=== PATIENT | male | born 1940 | race Caucasian/White ===

== ENCOUNTER 2018-01-20 07:36 | Emergency (ER) | payer MEDICARE, OTHER ==
[~2018-01-20] VITALS: Ht 162.6 cm; Wt 63.5 kg
[~2018-01-20 07:36] MED LIST: AUGM875T PO; KPHOS250 PO; ZOCO40TA PO
[2018-01-20 07:42] VITALS: BP 101/57; PULSE 106; RESP 18; TEMP 97.3; O2SAT 99
[2018-01-20] MEDS ORDERED: SIMV40TA PO (07:54)
[2018-01-20 08:21] VITALS: BP 119/70; PULSE 79; RESP 17; O2SAT 98
--- NOTE | 2018-01-20 08:27 | PD ---
HPI Chief Complaint: Cold / Flu Symptoms Time Seen by Provider: 08:11 Travel History International Travel<30 days: No Contact w/Intl Traveler<30days: No Traveled to known affect area: No History of Present Illness HPI This patient complains of diarrhea. He is having frequently for the last 1 week. Is not having abdominal pain or presyncopal symptoms. He has baseline low blood pressure. He is not having nausea or vomiting or any fever. He feels dehydrated. He has some generalized weakness. He did take antibiotics 2 weeks ago for a tooth infection. He has no history of C. difficile colitis. Symptom severity is moderate. No alleviating factors. No exacerbating factors. PFSH Past Medical History Cancer: No High Cholesterol: Yes Endocrine: No Genitourinary: No Immune Disorder: No Musculoskeletal: No Neurologic: No Psychiatric: No Reproductive: No Respiratory: No Past Surgical History Tonsillectomy: Yes Social History Alcohol Use: No Tobacco Use: No Substance Use: No Allergies-Medications (Allergen,Severity, Reaction): Coded Allergies: No Known Allergies (Unverified Adverse Reaction, Unknown, 01/20/18) Reported Meds & Prescriptions Reported Meds & Active Scripts Active Vancomycin (Vancomycin HCl) 125 Mg Cap 125 Mg PO QID 10 Days Reported Simvastatin 40 Mg Tab 40 Mg PO HS Review of Systems General / Constitutional: No: Fever Eyes: No: Visual changes HENT: No: Headaches Cardiovascular: No: Chest Pain or Discomfort Respiratory: No: Shortness of Breath Gastrointestinal: Positive: Diarrhea, No: Abdominal Pain Genitourinary: No: Dysuria Musculoskeletal: Positive: Weakness, No: Pain Skin: No Rash Neurologic: Positive: Weakness Psychiatric: No: Depression Endocrine: No: Polydipsia Hematologic/Lymphatic: No: Easy Bruising Physical Exam Narrative GENERAL: Well-nourished, well-developed patient in no apparent distress. SKIN: Focused skin assessment reveals no rash and nodules. Skin is Warm and dry. HEAD: Atraumatic. Normocephalic. EYES: Pupils equal and round. No scleral icterus. No injection or drainage. ENT: No nasal bleeding or discharge. Mucous membranes pink and moist. NECK: Trachea midline. No JVD. CARDIOVASCULAR: Regular rate and rhythm. No murmur appreciated. RESPIRATORY: No accessory muscle use. Clear to auscultation. Breath sounds equal bilaterally. GASTROINTESTINAL: Abdomen soft, non-tender, nondistended. Hepatic and splenic margins not palpable. MUSCULOSKELETAL: No obvious deformities. No clubbing. No cyanosis. No edema. NEUROLOGICAL: Awake and alert. No obvious cranial nerve deficits. Motor grossly within normal limits. Normal speech. PSYCHIATRIC: Appropriate mood and affect; insight and judgment normal. Rectal: Stool is dark but Hemoccult negative. Has a small external hemorrhoid that is not bleeding. No fissure. Data Data Last Documented VS Vital Signs Date Time Temp Pulse Resp B/P (MAP) Pulse Ox O2 Delivery O2 Flow Rate FiO2 01/20/18 08:21 79 17 119/70 (86) 98 Room Air 01/20/18 07:42 97.3 Orders Orders Iv Access Insert/Monitor (01/20/18 08:20) Complete Blood Count With Diff (01/20/18 08:20) Comprehensive Metabolic Panel (01/20/18 08:20) Sodium Chlor 0.9% 1000 Ml Inj (Ns 1000 M (01/20/18 08:30) C Diff Toxin Pcr (01/20/18 08:20) Potassium Bicarb Eff (Effer-K Eff) (01/20/18 12:30) Labs Laboratory Tests Test 01/20/18 08:10 01/20/18 08:15 White Blood Count 16.2 TH/MM3 Red Blood Count 5.31 MIL/MM3 Hemoglobin 16.4 GM/DL Hematocrit 46.6 % Mean Corpuscular Volume 87.8 FL Mean Corpuscular Hemoglobin 30.9 PG Mean Corpuscular Hemoglobin Concent 35.2 % Red Cell Distribution Width 12.9 % Platelet Count 294 TH/MM3 Mean Platelet Volume 9.2 FL Neutrophils (%) (Auto) 80.3 % Lymphocytes (%) (Auto) 11.9 % Monocytes (%) (Auto) 7.2 % Eosinophils (%) (Auto) 0.4 % Basophils (%) (Auto) 0.2 % Neutrophils # (Auto) 13.0 TH/MM3 Lymphocytes # (Auto) 1.9 TH/MM3 Monocytes # (Auto) 1.2 TH/MM3 Eosinophils # (Auto) 0.1 TH/MM3 Basophils # (Auto) 0.0 TH/MM3 CBC Comment AUTO DIFF Differential Total Cells Counted 100 Neutrophils % (Manual) 33 % Band Neutrophils % 40 % Lymphocytes % 12 % Monocytes % 9 % Neutrophils # (Manual) 12.8 TH/MM3 Metamyelocytes 6 % Differential Comment FINAL DIFF MANUAL Toxic Granulation 1+ Toxic Vacuolation PRESENT Ovalocytes 1+ Acanthocytes OCC Blood Urea Nitrogen 18 MG/DL Creatinine 0.95 MG/DL Random Glucose 100 MG/DL Total Protein 7.3 GM/DL Albumin 2.9 GM/DL Calcium Level 9.1 MG/DL Alkaline Phosphatase 79 U/L Aspartate Amino Transf (AST/SGOT) 27 U/L Alanine Aminotransferase (ALT/SGPT) 31 U/L Total Bilirubin 0.6 MG/DL Sodium Level 136 MEQ/L Potassium Level 3.2 MEQ/L Chloride Level 99 MEQ/L Carbon Dioxide Level 22.8 MEQ/L Anion Gap 14 MEQ/L Estimat Glomerular Filtration Rate 76 ML/MIN Stool C. difficile Toxin (PCR) POSITIVE Stl C. difficile Toxin Epiderm 027 PRESUMPTIVE NEGATIVE MDM Medical Decision Making Medical Screen Exam Complete: Yes Emergency Medical Condition: Yes Medical Record Reviewed: Yes Differential Diagnosis Gastroenteritis, colitis, C. difficile Narrative Course I have reviewed the patient's electronic medical record. Patient was last year in 2015 with hypotension and bradycardia IV placed and labs sent I gave him 1 L normal saline IV bolus His abdomen is soft and benign and nontender Stool sent for C. difficile toxin CBC shows leukocytosis with bandemia Metabolic profile shows hypokalemia and I replaced this with a 50 mEq dose C. difficile toxin is positive Patient has C. difficile diarrhea and I will treat with 10 days of oral vancomycin as per up-to-date recommendations. I do not think he requires inpatient stay. He is minimally symptomatic and quite spry for his age. Diagnosis Primary Impression: C. difficile colitis Additional Impression: Hypokalemia, gastrointestinal losses Additional Instructions: The patient was advised to follow up with their physician and return if they worsen. Med/Other Pt SpecificInfo: Prescription(s) given Scripts Vancomycin (Vancomycin) 125 Mg Cap 125 MG PO QID for Infection for 10 Days, CAP 0 Refills Prov: Marcelino Maya MD 01/20/18 Disposition: 01 DISCHARGE HOME Condition: Stable Marcelino Maya MD January 20, 2018 08:27
[2018-01-20] MEDS ORDERED: SODIUM CHLOR 0.9% 1000 ML INJ 1,000 ML IV ONE (08:30)
[2018-01-20 08:34] LABS: BASOPHIL % 0.2 % (0.0-2.0); EOSINOPHIL # 0.1 TH/MM3 (0-0.4); EOSINOPHIL % 0.4 % (0.0-4.0); HEMATOCRIT 46.6 % (39.0-51.0); HEMOGLOBIN 16.4 GM/DL (13.0-17.0); LYMPH % 11.9 % (9.0-44.0); LYMPHOCYTE # 1.9 TH/MM3 (1.0-4.8); MEAN CELL VOLUME 87.8 FL (80.0-100.0); MEAN CORPUSCULAR HEMOGLOBIN 30.9 PG (27.0-34.0); MEAN CORPUSCULAR HGB CONC 35.2 % (32.0-36.0); MEAN PLATELET VOLUME 9.2 FL (7.0-11.0); MONO % 7.2 % (0.0-8.0); MONOCYTE # 1.2 TH/MM3 (0-0.9); NEUT % 80.3 % (16.0-70.0); PLATELET COUNT 294 TH/MM3 (150-450); RED BLOOD COUNT 5.31 MIL/MM3 (4.50-5.90); RED CELL DISTRIBUTION WIDTH 12.9 % (11.6-17.2); WHITE BLOOD COUNT 16.2 TH/MM3 (4.0-11.0)
[2018-01-20 08:53] LABS: ALBUMIN 2.9 GM/DL (3.4-5.0); ALT (GPT) 31 U/L (12-78); AST (GOT) 27 U/L (15-37); BICARBONATE 22.8 MEQ/L (21.0-32.0); BLOOD UREA NITROGEN 18 MG/DL (7-18); CALCIUM 9.1 MG/DL (8.5-10.1); CHLORIDE 99 MEQ/L (98-107); CREATININE 0.95 MG/DL (0.60-1.30); GLOMERULAR FILTRATION RATE 76 ML/MIN (>89); GLUCOSE,RANDOM 100 MG/DL (74-106); SODIUM (NA) 136 MEQ/L (136-145)
[2018-01-20 08:56] LABS: ALKALINE PHOSPHATASE 79 U/L (45-117); TOTAL BILIRUBIN ADULT 0.6 MG/DL (0.2-1.0); TOTAL PROTEIN 7.3 GM/DL (6.4-8.2)
[2018-01-20 09:34] LABS: BANDS 40 % (0-6); LYMPHOCYTES 12 % (9-44); METAMYELOCYTES 6 % (0-1); MONOCYTES 9 % (0-8); NEUTROPHIL # MANUAL DIFF 12.8 TH/MM3 (1.8-7.7); POLYS (SEG NEUTROPHILS) 33 % (16-70); TOXIC VACUOLATION PRESENT (NONE SEEN)
[2018-01-20 09:35] LABS: ACANTHOCYTES OCC (NORMAL); TOXIC GRANULATION 1+ (NORMAL)
[2018-01-20 09:36] LABS: OVALOCYTES 1+ (NORMAL)
[2018-01-20] MEDS ORDERED: POTASSIUM BICARBONATE 25 MEQ EFFERVESCENT TAB PO ONE (12:30)
[2018-01-20] MEDS ORDERED: VANC125C3 PO (13:38)
[2018-01-20 13:50] VITALS: BP 118/72
== END 2018-01-20 13:51 | disposition home or self-care (01) ==
LOC: NEPE 07:36
DX: A04.72 Enterocolitis due to Clostridium difficile, not specified as recurrent (principal); E87.6 Hypokalemia; E78.00 Pure hypercholesterolemia, unspecified
CPT/HCPCS: 80053; 85007; 85027; 87493; 96360; 99284; J7030

== ENCOUNTER 2018-01-21 22:10 | Emergency (ER) | payer OTHER ==
[~2018-01-21] VITALS: Ht 177.8 cm; Wt 67.0 kg
[~2018-01-21 22:10] MED LIST changes: +SIMV40TA PO; +VANC125C3 PO
[2018-01-21 22:56] VITALS: BP 100/53; PULSE 83; RESP 20; TEMP 98.6; O2SAT 98
[2018-01-22] MEDS ORDERED: SODIUM CHLOR 0.9% 1000 ML INJ 1,000 ML IV ONE (00:22)
[2018-01-22 00:24] VITALS: O2SAT 97
[2018-01-22] MEDS ORDERED: SODIUM CHLORIDE 0.9% FLUSH 10 ML FLUSH IVF PRN (00:30)
[2018-01-22 00:42] LABS: AUTOMATED NEUTROPHIL # 10.9 TH/MM3 (1.8-7.7); BASOPHIL # 0.1 TH/MM3 (0-0.2); BASOPHIL % 0.5 % (0.0-2.0); EOSINOPHIL # 0.1 TH/MM3 (0-0.4); EOSINOPHIL % 0.8 % (0.0-4.0); HEMATOCRIT 40.2 % (39.0-51.0); HEMOGLOBIN 14.1 GM/DL (13.0-17.0); LYMPH % 19.5 % (9.0-44.0); MEAN CELL VOLUME 87.8 FL (80.0-100.0); MEAN CORPUSCULAR HEMOGLOBIN 30.8 PG (27.0-34.0); MEAN CORPUSCULAR HGB CONC 35.1 % (32.0-36.0); MEAN PLATELET VOLUME 8.9 FL (7.0-11.0); MONO % 7.5 % (0.0-8.0); MONOCYTE # 1.1 TH/MM3 (0-0.9); NEUT % 71.7 % (16.0-70.0); PLATELET COUNT 304 TH/MM3 (150-450); RED BLOOD COUNT 4.58 MIL/MM3 (4.50-5.90); RED CELL DISTRIBUTION WIDTH 13.3 % (11.6-17.2); WHITE BLOOD COUNT 15.2 TH/MM3 (4.0-11.0)
[2018-01-22 01:12] LABS: BANDS 16 % (0-6); LYMPHOCYTES 22 % (9-44); METAMYELOCYTES 2 % (0-1); MONOCYTES 1 % (0-8); NEUTROPHIL # MANUAL DIFF 11.6 TH/MM3 (1.8-7.7); POLYS (SEG NEUTROPHILS) 58 % (16-70)
[2018-01-22 01:13] LABS: BICARBONATE 29.2 MEQ/L (21.0-32.0); CALCIUM 8.2 MG/DL (8.5-10.1); CREATININE 0.66 MG/DL (0.60-1.30)
[2018-01-22 01:14] LABS: TOXIC GRANULATION 1+ (NORMAL)
[2018-01-22 01:15] LABS: TOXIC VACUOLATION PRESENT (NONE SEEN)
[2018-01-22] MEDS ORDERED: POTASSIUM CHLORIDE 20 MEQ CONTROLLED RELEASE TAB PO ONE (01:30)
[2018-01-22] MEDS ORDERED: POTASSIUM CHLOR 10 MEQ PREMIX 100 ML IV ONE (01:30)
--- NOTE | 2018-01-22 01:35 | PD ---
HPI Chief Complaint: GI Complaint Time Seen by Provider: 00:22 Travel History International Travel<30 days: No Contact w/Intl Traveler<30days: No Traveled to known affect area: No History of Present Illness HPI 77-year-old male presents to the emergency department by private transport in the care of his granddaughter for evaluation of dehydration. Patient has had 1 week of diarrheal illness was seen in the emergency department 01/20/18 diagnosed with C. difficile diarrheal illness/colitis and started on oral vancomycin. Patient was identified yesterday to have elevated white cell count with left shift and hyperkalemia patient given a liter of normal saline bolus oral potassium replacement and started on oral vancomycin. Patient's had no fever no chills no nausea no vomiting has been able to take oral hydration and foods well however after oral hydration patient has been having ongoing frequent diarrhea. No bloody stool no explosive stool or flatus. Patient denies any abdominal pain. Granddaughter became concerned because patient continued to appear like he might be becoming dehydrated. Patient voices no concerns or complaints at this time. Source of onset of diarrheal illness felt to be related to recent antibiotic use from recent dental procedure. Patient reports frequency of diarrheal episodes decreasing and stool seems to be forming to more solid stool patient reports he thinks that he is improving. PFSH Past Medical History Narrative Medical Dental extraction dyslipidemia C. difficile colitis; nursing notes reviewed Cancer: No High Cholesterol: Yes Diminished Hearing: No Endocrine: No Genitourinary: No Immune Disorder: No Musculoskeletal: No Neurologic: No Psychiatric: No Reproductive: No Respiratory: No Immunizations Current: Yes Tetanus Vaccination: Unknown Influenza Vaccination: No Past Surgical History Surgical History: No Previous Surgery Tonsillectomy: Yes Social History Alcohol Use: No Tobacco Use: No Substance Use: No Allergies-Medications (Allergen,Severity, Reaction): Coded Allergies: No Known Allergies (Unverified Adverse Reaction, Unknown, 01/21/18) Reported Meds & Prescriptions Reported Meds & Active Scripts Active Vancomycin (Vancomycin HCl) 125 Mg Cap 125 Mg PO QID 10 Days Reported Simvastatin 40 Mg Tab 40 Mg PO HS Review of Systems Except as stated in HPI: all other systems reviewed are Neg General / Constitutional: No: Fever, Chills HENT: No: Congestion Cardiovascular: No: Chest Pain or Discomfort Respiratory: No: Shortness of Breath Gastrointestinal: Positive: Diarrhea, No: Nausea, Vomiting, Abdominal Pain Genitourinary: No: Dysuria, Flank Pain Musculoskeletal: No: Myalgias, Arthralgias Neurologic: No: Weakness, Dizziness, Syncope Psychiatric: No: Anxiety Hematologic/Lymphatic: No: Easy Bruising Physical Exam Narrative GENERAL: Well-developed well-nourished male no acute distress no respiratory distress SKIN: Warm and dry. HEAD: Normocephalic. EYES: No scleral icterus. No injection or drainage. NECK: Supple, trachea midline. No JVD or lymphadenopathy. CARDIOVASCULAR: Regular rate and rhythm without murmurs, gallops, or rubs. RESPIRATORY: Breath sounds equal bilaterally. No accessory muscle use. GASTROINTESTINAL: Abdomen soft, non-tender, nondistended. MUSCULOSKELETAL: No cyanosis, or edema. BACK: Nontender without obvious deformity. No CVA tenderness. Data Data Last Documented VS Vital Signs Date Time Temp Pulse Resp B/P (MAP) Pulse Ox O2 Delivery O2 Flow Rate FiO2 01/22/18 00:24 97 Room Air 01/21/18 22:56 98.6 83 20 100/53 (69) Orders Orders Complete Blood Count With Diff (01/22/18 00:22) Basic Metabolic Panel (Bmp) (01/22/18 00:22) Iv Access Insert/Monitor (01/22/18 00:22) Ecg Monitoring (01/22/18 00:22) Oximetry (01/22/18 00:22) Sodium Chlor 0.9% 1000 Ml Inj (Ns 1000 M (01/22/18 00:22) Sodium Chloride 0.9% Flush (Ns Flush) (01/22/18 00:30) Potassium Chloride (Kcl) (01/22/18 01:30) Potassium Chlor 10 Meq Premix (Kcl 10 Me (01/22/18 01:30) Vancomycin 25 Mg/Ml Liq (Vancomycin 25 M (01/22/18 03:04) Labs Laboratory Tests Test 01/22/18 00:30 White Blood Count 15.2 TH/MM3 Red Blood Count 4.58 MIL/MM3 Hemoglobin 14.1 GM/DL Hematocrit 40.2 % Mean Corpuscular Volume 87.8 FL Mean Corpuscular Hemoglobin 30.8 PG Mean Corpuscular Hemoglobin Concent 35.1 % Red Cell Distribution Width 13.3 % Platelet Count 304 TH/MM3 Mean Platelet Volume 8.9 FL Neutrophils (%) (Auto) 71.7 % Lymphocytes (%) (Auto) 19.5 % Monocytes (%) (Auto) 7.5 % Eosinophils (%) (Auto) 0.8 % Basophils (%) (Auto) 0.5 % Neutrophils # (Auto) 10.9 TH/MM3 Lymphocytes # (Auto) 3.0 TH/MM3 Monocytes # (Auto) 1.1 TH/MM3 Eosinophils # (Auto) 0.1 TH/MM3 Basophils # (Auto) 0.1 TH/MM3 CBC Comment AUTO DIFF Differential Total Cells Counted 100 Neutrophils % (Manual) 58 % Band Neutrophils % 16 % Lymphocytes % 22 % Monocytes % 1 % Eosinophils % 1 % Neutrophils # (Manual) 11.6 TH/MM3 Metamyelocytes 2 % Differential Comment FINAL DIFF MANUAL Toxic Granulation 1+ Toxic Vacuolation PRESENT Platelet Estimate NORMAL Platelet Morphology Comment NORMAL Blood Urea Nitrogen 6 MG/DL Creatinine 0.66 MG/DL Random Glucose 87 MG/DL Calcium Level 8.2 MG/DL Sodium Level 139 MEQ/L Potassium Level 2.9 MEQ/L Chloride Level 101 MEQ/L Carbon Dioxide Level 29.2 MEQ/L Anion Gap 9 MEQ/L Estimat Glomerular Filtration Rate 116 ML/MIN MDM Medical Decision Making Medical Screen Exam Complete: Yes Emergency Medical Condition: Yes Medical Record Reviewed: Yes Interpretation(s) CBC & BMP Diagram 01/22/18 00:30 Calcium Level 8.2 #L Vital Signs Date Time Temp Pulse Resp B/P (MAP) Pulse Ox O2 Delivery O2 Flow Rate FiO2 01/22/18 00:24 97 Room Air 01/21/18 22:56 98.6 83 20 100/53 (69) 98 Differential Diagnosis Dehydration, electrolyte disturbance, colitis, anemia Narrative Course Patient ambulatory to the bathroom in no acute distress voicing no complaint of lightheadedness dizziness near syncope or syncope; IV access obtained specimens collected and sent for resulting and patient administered 1 L bolus of normal saline Patient identified by CBC is automated differential to have white count of 15, 216% bands by manual differential however yesterday white count was 16,200 with 40% bands; chemistries remarkable for hypokalemia potassium 2.9 yesterday potassium is 3.2 received oral replacement potassium Patient was placed on counter intelligence technician receive oral replacement potassium 40 mg p.o. and 10 mEq IV may also administer additional 10 mEq IV potassium also will obtain orthostatic measurements Patient ambulatory to bathroom Patient given prescription for potassium replacement encouraged to increase dietary intake of potassium Patient appears stable for outpatient management at this time. Diagnosis Primary Impression: Dehydration Additional Impressions: Hypokalemia C. difficile colitis Referrals: Primary Care Physician 2 days Patient Instructions: General Instructions Additional Instructions: Increase fluid hydration Add potassium containing foods and beverages to dietary intake Complete course of vancomycin antibiotic as prescribed Return to the emergency department for fever pain vomiting rectal bleeding or any concerns Monitor temperature for fever take acetaminophen/Tylenol every 4 hours as needed for fever 100.4F or greater Follow-up with your primary care provider call office on Wednesday Med/Other Pt SpecificInfo: Prescription(s) given Scripts Potassium Chloride ER (Potassium Chloride ER) 20 Meq Tab 20 MEQ PO DAILY for Electrolyte Replacement, #7 TAB 0 Refills Prov: Mirian Jcaob MD 01/22/18 Disposition: 01 DISCHARGE HOME Condition: Stable Mirian Jacob MD Jan 22, 2018 01:35
[2018-01-22] MEDS ORDERED: VANCOMYCIN 25 MG/ML SOLN 100 ML BOTTLE PO STA (03:04)
[2018-01-22] MEDS ORDERED: POTA-163 PO (03:09)
== END 2018-01-22 03:43 | disposition home or self-care (01) ==
LOC: NEPC 22:10
DX: E86.0 Dehydration (principal); E87.6 Hypokalemia; A04.72 Enterocolitis due to Clostridium difficile, not specified as recurrent; E78.00 Pure hypercholesterolemia, unspecified; Z79.899 Other long term (current) drug therapy
CPT/HCPCS: 80048; 85007; 85027; 96361; 96365; 99284; J3480; J7030

== ENCOUNTER 2018-02-04 06:32 | Inpatient (IN) | payer OTHER, MEDICARE ==
[2018-02-04] VITALS (12 sets, daily range): BP systolic 92–122; BP diastolic 51–68; PULSE 60–137; RESP 17–22; TEMP 97.6–98.2; O2SAT 96–100
[~2018-02-04] VITALS: Ht 177.8 cm; Wt 59.4 kg
[~2018-02-04 06:32] MED LIST changes: -AUGM875T PO; -KPHOS250 PO; +POTA-163 PO; -ZOCO40TA PO
[2018-02-04] MEDS ORDERED: CENTCHW3 (06:45)
[2018-02-04] MEDS ORDERED: ASPI81CH6 CHEW (06:45)
[2018-02-04] MEDS ORDERED: DILTIAZEM HCL 30 MG TAB PO ONE (07:00)
[2018-02-04] MEDS ORDERED: SODIUM CHLOR 0.9% 1000 ML INJ 1,000 ML IV SCH (07:00)
[2018-02-04] MEDS ORDERED: SODIUM CHLORID 0.9% 500 ML INJ 500 ML IV ONE (07:00)
[2018-02-04 07:40] LABS: AUTOMATED NEUTROPHIL # 4.4 TH/MM3 (1.8-7.7); BASOPHIL # 0.1 TH/MM3 (0-0.2); EOSINOPHIL % 0.4 % (0.0-4.0); HEMATOCRIT 36.6 % (39.0-51.0); HEMOGLOBIN 13.2 GM/DL (13.0-17.0); LYMPH % 33.7 % (9.0-44.0); LYMPHOCYTE # 2.6 TH/MM3 (1.0-4.8); MEAN CELL VOLUME 87.5 FL (80.0-100.0); MEAN CORPUSCULAR HEMOGLOBIN 31.5 PG (27.0-34.0); MONOCYTE # 0.6 TH/MM3 (0-0.9); NEUT % 56.9 % (16.0-70.0); PLATELET COUNT 319 TH/MM3 (150-450); RED BLOOD COUNT 4.19 MIL/MM3 (4.50-5.90); WHITE BLOOD COUNT 7.8 TH/MM3 (4.0-11.0)
--- NOTE | 2018-02-04 07:48 | RADRPT ---
EXAM DATE: 02/04/2018 7:37 AM EDT AGE/SEX: 77 years / Male INDICATIONS: Palpitations. CLINICAL DATA: This is the patient's initial encounter. Patient reports that signs and symptoms have been present for 1 day and indicates a pain score of 0/10. MEDICAL/SURGICAL HISTORY: Hypertension. Diabetes mellitus type II. Stroke. None. COMPARISON: [facility] [place], CHEST SINGLE AP, 08/26/2015. . FINDINGS: A single AP view of the chest demonstrates the lungs to be symmetrically aerated without evidence of mass, infiltrate or effusion. The cardiomediastinal contours are unremarkable. Degenerative changes and scoliosis of the thoracic spine are stable. CONCLUSION: No acute cardiopulmonary disease. Electronically signed by: Dino Boyle MD 02/04/2018 7:47 AM EDT
--- NOTE | 2018-02-04 08:07 | PD ---
HPI Chief Complaint: General Weakness Time Seen by Provider: 07:50 Travel History International Travel<30 days: No Contact w/Intl Traveler<30days: No Traveled to known affect area: No History of Present Illness HPI This patient woke up this morning feeling dizzy and lightheaded. He had palpitations and a sensation of racing heartbeat. He called paramedics who brought him in. He arrived with A. fib with RVR and a rate of 137. He did not have any chest pain or pressure. No syncope. Patient does have history of A. fib in the past and takes a baby aspirin daily. He has baseline low blood pressure and does not take rate limiting medications. He follows with Dr. Bland yearly basis but has not had to treat the A. fib. Symptoms are moderately severe. No alleviating factors. No exacerbating factors. PFSH Past Medical History Cancer: No High Cholesterol: Yes Diminished Hearing: No Endocrine: No Genitourinary: No Immune Disorder: No Medical other: Yes (C DIFF) Musculoskeletal: No Neurologic: No Psychiatric: No Reproductive: No Respiratory: No Immunizations Current: Yes Tetanus Vaccination: Unknown Influenza Vaccination: Yes Past Surgical History Tonsillectomy: Yes Social History Alcohol Use: No Tobacco Use: No Substance Use: No Allergies-Medications (Allergen,Severity, Reaction): Coded Allergies: No Known Allergies (Unverified Adverse Reaction, Unknown, 02/04/18) Reported Meds & Prescriptions Reported Meds & Active Scripts Active Vancomycin (Vancomycin HCl) 125 Mg Cap 125 Mg PO QID 10 Days Reported Centrum Silver (Multiple Vitamins W/ Minerals) 400 Mcg-250 Mcg Chw 1 Tab Aspirin Low Dose (Aspirin) 81 Mg Chew 81 Mg CHEW DAILY Simvastatin 40 Mg Tab 40 Mg PO HS Review of Systems General / Constitutional: No: Fever Eyes: No: Visual changes HENT: Positive: Lightheadedness, No: Headaches Cardiovascular: Positive: Palpitations, Irregular Rhythm, Tachycardia, No: Chest Pain or Discomfort Respiratory: No: Shortness of Breath Gastrointestinal: Positive: Diarrhea, No: Abdominal Pain Genitourinary: No: Dysuria Musculoskeletal: Positive: Weakness, No: Pain Skin: No Rash Neurologic: Positive: Weakness, Dizziness Psychiatric: No: Depression Endocrine: No: Polydipsia Hematologic/Lymphatic: No: Easy Bruising Physical Exam Narrative GENERAL: Well-nourished, well-developed patient in no apparent distress. SKIN: Focused skin assessment reveals no rash and nodules. Skin is Warm and dry. HEAD: Atraumatic. Normocephalic. EYES: Pupils equal and round. No scleral icterus. No injection or drainage. ENT: No nasal bleeding or discharge. Mucous membranes pink and moist. NECK: Trachea midline. No JVD. CARDIOVASCULAR: Regular rate and rhythm. No murmur appreciated. RESPIRATORY: No accessory muscle use. Clear to auscultation. Breath sounds equal bilaterally. GASTROINTESTINAL: Abdomen soft, non-tender, nondistended. Hepatic and splenic margins not palpable. MUSCULOSKELETAL: No obvious deformities. No clubbing. No cyanosis. No edema. NEUROLOGICAL: Awake and alert. No obvious cranial nerve deficits. Motor grossly within normal limits. Normal speech. PSYCHIATRIC: Appropriate mood and affect; insight and judgment normal. Data Data Last Documented VS Vital Signs Date Time Temp Pulse Resp B/P (MAP) Pulse Ox O2 Delivery O2 Flow Rate FiO2 02/04/18 10:30 61 18 92/51 (65) 97 Room Air 02/04/18 06:40 97.7 Orders Orders Electrocardiogram (02/04/18 06:52) Complete Blood Count With Diff (02/04/18 06:52) Comprehensive Metabolic Panel (02/04/18 06:52) Ckmb (Isoenzyme) Profile (02/04/18 06:52) Troponin I (02/04/18 06:52) Lipase (02/04/18 06:52) Urinalysis - C+S If Indicated (02/04/18 06:52) Chest, Single Ap (02/04/18 06:52) Sodium Chlor 0.9% 1000 Ml Inj (Ns 1000 M (02/04/18 07:00) Diltiazem (Cardizem) (02/04/18 07:00) Sodium Chlorid 0.9% 500 Ml Inj (Ns 500 M (02/04/18 07:00) CKMB (02/04/18 06:45) CKMB% (02/04/18 06:45) Potassium Bicarb Eff (Effer-K Eff) (02/04/18 09:00) Place In Observation (02/04/18 ) Vital Signs (Adult) Q4H (02/04/18 10:42) Activity Oob With Assistance (02/04/18 10:42) Metal Bending Machine Operator / Telemetry .CONTINUOUS (02/04/18 10:42) Intake + Output BONILLA.QSHIFT (02/04/18 10:42) Diet Regular Basic (02/04/18 Lunch) Sodium Chlor 0.9% 1000 Ml Inj (Ns 1000 M (02/04/18 11:00) Sodium Chloride 0.9% Flush (Ns Flush) (02/04/18 10:45) Sodium Chloride 0.9% Flush (Ns Flush) (02/04/18 21:00) Basic Metabolic Panel (Bmp) (02/05/18 06:00) Complete Blood Count With Diff (02/05/18 06:00) Resp Oxygen Haresh C Titrat 1-4 L (02/04/18 ) Pt Request For Service (02/04/18 10:42) Enoxaparin Inj (Lovenox Inj) (02/04/18 11:00) Scd Bilateral/Knee High BONILLA.BID (02/04/18 10:42) Moises Bilateral/Knee High BONILLA.QSHIFT (02/04/18 10:42) Naloxone Inj (Narcan Inj) (02/04/18 10:45) Docusate Sodium-Senna (Kalee-Colace) (02/04/18 21:00) Magnesium Hydroxide Liq (Milk Of Magnesi (02/04/18 10:45) Sennosides (Senokot) (02/04/18 10:45) Bisacodyl Supp (Dulcolax Supp) (02/04/18 10:45) Lactulose Liq (Lactulose Liq) (02/04/18 10:45) Ondansetron Odt (Zofran Odt) (02/04/18 10:45) Aspirin Chew (Aspirin Chew) (02/05/18 09:00) Vancomycin For Oral Use Only (Vancomycin (02/04/18 13:00) Pravastatin (Pravachol) (02/04/18 21:00) Consult Cardiology (02/04/18 ) Echo 2d Comp With Doppler (02/04/18 ) (Hub Use Only)Inp Phy Cons/Ref (02/04/18 ) Labs Laboratory Tests Test 02/04/18 06:45 02/04/18 08:30 White Blood Count 7.8 TH/MM3 Red Blood Count 4.19 MIL/MM3 Hemoglobin 13.2 GM/DL Hematocrit 36.6 % Mean Corpuscular Volume 87.5 FL Mean Corpuscular Hemoglobin 31.5 PG Mean Corpuscular Hemoglobin Concent 36.0 % Red Cell Distribution Width 14.0 % Platelet Count 319 TH/MM3 Mean Platelet Volume 9.0 FL Neutrophils (%) (Auto) 56.9 % Lymphocytes (%) (Auto) 33.7 % Monocytes (%) (Auto) 8.0 % Eosinophils (%) (Auto) 0.4 % Basophils (%) (Auto) 1.0 % Neutrophils # (Auto) 4.4 TH/MM3 Lymphocytes # (Auto) 2.6 TH/MM3 Monocytes # (Auto) 0.6 TH/MM3 Eosinophils # (Auto) 0.0 TH/MM3 Basophils # (Auto) 0.1 TH/MM3 CBC Comment AUTO DIFF Differential Comment AUTO DIFF CONFIRMED Platelet Estimate NORMAL Platelet Morphology Comment NORMAL Red Cell Morphology Comment NORMAL Blood Urea Nitrogen 3 MG/DL Creatinine 0.68 MG/DL Random Glucose 88 MG/DL Total Protein 6.2 GM/DL Albumin 2.6 GM/DL Calcium Level 8.3 MG/DL Alkaline Phosphatase 51 U/L Aspartate Amino Transf (AST/SGOT) 47 U/L Alanine Aminotransferase (ALT/SGPT) 32 U/L Total Bilirubin 0.5 MG/DL Sodium Level 143 MEQ/L Potassium Level 2.6 MEQ/L Chloride Level 105 MEQ/L Carbon Dioxide Level 25.1 MEQ/L Anion Gap 13 MEQ/L Estimat Glomerular Filtration Rate 112 ML/MIN Total Creatine Kinase 128 U/L Creatine Kinase MB 2.3 NG/ML Troponin I LESS THAN 0.02 NG/ML Lipase 88 U/L Urine Color STRAW Urine Turbidity CLEAR Urine pH 8.0 Urine Specific [place] 1.001 Urine Protein NEG mg/dL Urine Glucose (UA) NEG mg/dL Urine Ketones TRACE mg/dL Urine Occult Blood NEG Urine Nitrite NEG Urine Bilirubin NEG Urine Leukocyte Esterase TRACE Urine RBC LESS THAN 1 /hpf Urine WBC LESS THAN 1 /hpf Microscopic Urinalysis Comment CULT NOT INDICATED MDM Medical Decision Making Medical Screen Exam Complete: Yes Emergency Medical Condition: Yes Medical Record Reviewed: Yes Differential Diagnosis A. fib with RVR, SVT, ventricular tachycardia Narrative Course I have reviewed the patient's electronic medical record. I saw this patient 2 weeks ago and diagnosed with C. difficile and started him on vancomycin. He was changed to Flagyl by his physician. He still has diarrhea but much less IV placed and labs sent CBC is normal This EKG shows A. fib at 137 which was taken on arrival. Extended cardiac monitoring initially showed A. fib with RVR but has spontaneously converted to sinus rhythm in the 80s at this time He received a liter normal saline IV bolus Metabolic profile reveals abnormal potassium of 2.6 I gave him 50 mg replacement Case reviewed in detail with his arrow point attacher Dr. Bland. She recommends telemetry observation to the hospitalist. I did review with the hospitalist as well. Dr. Bland felt that the A. fib was new onset and wanted to have that monitored in the hospital and get him on medications Diagnosis Primary Impression: New onset a-fib Additional Impressions: Atrial fibrillation with RVR Hypokalemia, gastrointestinal losses C. difficile diarrhea Admitting Information Admitting Physician Requests: Observation Marcelino Maya MD Feb 04, 2018 08:07
[2018-02-04 08:49] LABS: ALBUMIN 2.6 GM/DL (3.4-5.0); ALKALINE PHOSPHATASE 51 U/L (45-117); ALT (GPT) 32 U/L (12-78); AST (GOT) 47 U/L (15-37); BICARBONATE 25.1 MEQ/L (21.0-32.0); BLOOD UREA NITROGEN 3 MG/DL (7-18); CALCIUM 8.3 MG/DL (8.5-10.1); CHLORIDE 105 MEQ/L (98-107); CREATININE 0.68 MG/DL (0.60-1.30); GLOMERULAR FILTRATION RATE 112 ML/MIN (>89); GLUCOSE,RANDOM 88 MG/DL (74-106); SODIUM (NA) 143 MEQ/L (136-145); TOTAL BILIRUBIN ADULT 0.5 MG/DL (0.2-1.0); TOTAL PROTEIN 6.2 GM/DL (6.4-8.2); TROPONIN I LESS THAN 0.02 NG/ML (0.02-0.05)
[2018-02-04 09:00] LABS: BILIRUBIN, URINE NEG (NEG); BLOOD, URINE NEG (NEG); GLUCOSE,URINE NEG (NEG); KETONE, URINE TRACE mg/dL (NEG); NITRITE,URINE NEG (NEG); URINE LEUKOCYTE ESTERASE TRACE (NEG)
[2018-02-04] MEDS ORDERED: POTASSIUM BICARBONATE 25 MEQ EFFERVESCENT TAB PO ONE (09:00)
[2018-02-04 09:01] LABS: URINE COLOR STRAW (YELLW/STRAW)
--- NOTE | 2018-02-04 10:39 | EKG ---
Date Performed: 02/04/2018 Time Performed: 05:41:51 PTAGE: 77 years EKG: ATRIAL FLUTER WITH 2:[address]/T ABNORMALITY ABNORMAL ECG PREVIOUS TRACING : 08/26/2015 08.16 Compared to previous tracing, atrial flutter has replaced S inus rhythm , heart rate has increased. DOCTOR: Donell Granados Interpretating Date/Time 02/04/2018 10:36:56
[2018-02-04] MEDS ORDERED: ONDANSETRON ODT 4 MG TAB PO PRN (10:45)
[2018-02-04] MEDS ORDERED: NALOXONE HCL 0.4 MG/ML AMP IV PUSH PRN (10:45)
[2018-02-04] MEDS ORDERED: BISACODYL 10 MG SUPP RECTAL PRN (10:45)
[2018-02-04] MEDS ORDERED: SODIUM CHLORIDE 0.9% FLUSH 10 ML FLUSH IV FLUSH PRN (10:45)
[2018-02-04] MEDS ORDERED: LACTULOSE SYRUP 20 GM/30 ML CUP PO PRN (10:45)
[2018-02-04] MEDS ORDERED: MAGNESIUM HYDROXIDE SUSP 30 ML CUP PO PRN (10:45)
[2018-02-04] MEDS ORDERED: SENNOSIDES 8.6 MG TAB PO PRN (10:45)
[2018-02-04] MEDS ORDERED: ENOXAPARIN SODIUM 40 MG/0.4 ML SYRINGE SQ SCH (11:00)
[2018-02-04] MEDS: SODIUM CHLOR 0.9% 1000 ML INJ 1,000 ML IV SCH ×2 (15:45→22:33)
[2018-02-04] MEDS: VANCOMYCIN 500 MG VIAL (FOR ORAL USE ONLY) PO SCH ×3 (15:46→21:29)
--- NOTE | 2018-02-04 15:51 | HHI.HP ---
HPI Service [facility] Primary Care Physician Tova Johnson MD Admission Diagnosis afib with rvr,hypokalemia,c diff Diagnoses: Chief Complaint: lightheadedness, palpitations Travel History International Travel<30 Days: No Contact w/Intl Traveler <30 Da: No Traveled to Known Affected Are: No History of Present Illness The patient is a pleasant 77-year-old male with past medical history of hyperlipidemia, c diff diarrhea, who woke up this morning feeling dizzy and lightheaded. He had palpitations and a sensation of racing heartbeat. He called paramedics who brought him to the emergency room. He arrived with A. fib with RVR and a rate of 137. He did not have any chest pain or pressure. No syncope. Patient does have history of A. fib in the past and takes a baby aspirin daily. He has baseline low blood pressure and does not take rate limiting medications. He follows with Dr. Bland yearly basis but has not had to treat the A. fib. Symptoms are moderately severe. No alleviating factors. No exacerbating factors. Has multiple BM says 15-20 per day at times. He is still with diarrhea and also says he is not eating much. No fever or chills. Has been treated for c diff but did not get better. He denies having abdominal pain /cramps. No nausea or vomiting. No fever or chills. No urinary complaints. Says he fees very weak. Says he used to be very active going to gym 3 times per week. Since diarrhea stated he feels very weak and not able to do much. He is feeling much better now however sill with diarrhea. Review of Systems Except as stated in HPI: all other systems reviewed are Neg Past Family Social History Past Medical History HLD, Afib Past Surgical History Tonsillectomy Reported Medications Reported Meds & Active Scripts Active Vancomycin (Vancomycin HCl) 125 Mg Cap 125 Mg PO QID 10 Days Reported Centrum Silver (Multiple Vitamins W/ Minerals) 400 Mcg-250 Mcg Chw 1 Tab Aspirin Low Dose (Aspirin) 81 Mg Chew 81 Mg CHEW DAILY Simvastatin 40 Mg Tab 40 Mg PO HS Allergies: Coded Allergies: No Known Allergies (Unverified Allergy, Unknown, 02/04/18) Social History Alcohol Use: No Tobacco Use: No Substance Use: No Physical Exam Vital Signs Vital Signs Date Time Temp Pulse Resp B/P (MAP) Pulse Ox O2 Delivery O2 Flow Rate FiO2 02/04/18 13:49 97.9 78 19 112/61 (78) 96 02/04/18 12:49 82 18 100/60 (73) 98 02/04/18 12:15 Room Air 02/04/18 10:30 61 18 92/51 (65) 97 Room Air 02/04/18 09:30 64 22 95/62 (73) 97 Room Air 02/04/18 08:30 83 18 98/55 (69) 98 Room Air 02/04/18 07:30 85 20 02/04/18 07:11 99 Room Air 02/04/18 07:00 115 22 110/68 (82) 98 Room Air 02/04/18 06:40 97.7 137 18 120/62 (81) 99 Room Air Physical Exam GENERAL: This is a well-nourished, well-developed patient, in no apparent distress. SKIN: No rashes, ecchymoses or lesions. Cool and dry. HEAD: Atraumatic. Normocephalic. No temporal or scalp tenderness. EYES: Pupils equal round and reactive. Extraocular motions intact. No scleral icterus. No injection or drainage. ENT: Nose without bleeding, purulent drainage or septal hematoma. Throat without erythema, tonsillar hypertrophy or exudate. Uvula midline. Airway patent. NECK: Trachea midline. No JVD or lymphadenopathy. Supple, nontender, no meningeal signs. CARDIOVASCULAR: Regular rate and rhythm without murmurs, gallops, or rubs. RESPIRATORY: Clear to auscultation. Breath sounds equal bilaterally. No wheezes , rales, or rhonchi. GASTROINTESTINAL: Abdomen soft, non-tender, nondistended. No hepato-splenomegaly , or palpable masses. No guarding. MUSCULOSKELETAL: Extremities without clubbing, cyanosis, or edema. No joint tenderness, effusion, or edema noted. No calf tenderness. Negative Homans sign bilaterally. NEUROLOGICAL: Awake and alert. Cranial nerves II through XII intact. Motor and sensory grossly within normal limits. Five out of 5 muscle strength in all muscle groups. Normal speech. Laboratory Laboratory Tests Test 02/04/18 06:45 02/04/18 08:30 White Blood Count 7.8 Red Blood Count 4.19 Hemoglobin 13.2 Hematocrit 36.6 Mean Corpuscular Volume 87.5 Mean Corpuscular Hemoglobin 31.5 Mean Corpuscular Hemoglobin Concent 36.0 Red Cell Distribution Width 14.0 Platelet Count 319 Mean Platelet Volume 9.0 Neutrophils (%) (Auto) 56.9 Lymphocytes (%) (Auto) 33.7 Monocytes (%) (Auto) 8.0 Eosinophils (%) (Auto) 0.4 Basophils (%) (Auto) 1.0 Neutrophils # (Auto) 4.4 Lymphocytes # (Auto) 2.6 Monocytes # (Auto) 0.6 Eosinophils # (Auto) 0.0 Basophils # (Auto) 0.1 CBC Comment AUTO DIFF Differential Comment AUTO DIFF CONFIRMED Platelet Estimate NORMAL Platelet Morphology Comment NORMAL Red Cell Morphology Comment NORMAL Blood Urea Nitrogen 3 Creatinine 0.68 Random Glucose 88 Total Protein 6.2 Albumin 2.6 Calcium Level 8.3 Alkaline Phosphatase 51 Aspartate Amino Transf (AST/SGOT) 47 Alanine Aminotransferase (ALT/SGPT) 32 Total Bilirubin 0.5 Sodium Level 143 Potassium Level 2.6 Chloride Level 105 Carbon Dioxide Level 25.1 Anion Gap 13 Estimat Glomerular Filtration Rate 112 Total Creatine Kinase 128 Creatine Kinase MB 2.3 Troponin I LESS THAN 0.02 Lipase 88 Urine Color STRAW Urine Turbidity CLEAR Urine pH 8.0 Urine Specific [place] 1.001 Urine Protein NEG Urine Glucose (UA) NEG Urine Ketones TRACE Urine Occult Blood NEG Urine Nitrite NEG Urine Bilirubin NEG Urine Leukocyte Esterase TRACE Urine RBC LESS THAN 1 Urine WBC LESS THAN 1 Microscopic Urinalysis Comment CULT NOT INDICATED Result Diagram: 02/04/1864402/04/18644 Caprini VTE Risk Assessment Caprini VTE Risk Assessment: Mod/High Risk (score >= 2) Caprini Risk Assessment Model Point Value = 1 Point Value = 2 Point Value = 3 Point Value = 5 Age 41-60 Minor surgery BMI > 25 kg/m2 Swollen legs Varicose veins or History of unexplained or recurrent spontaneous Oral contraceptives or hormone replacement Sepsis (< 1 month) Serious lung disease, including pneumonia (< 1 month) Abnormal pulmonary function Acute myocardial infarction Congestive heart failure (< 1 month) History of inflammatory bowel disease Medical patient at bed rest Age 61-74 Arthroscopic surgery Major open surgery (> 45 min) Laparoscopic surgery (> 45 min) Malignancy Confined to bed (> 72 hours) Immobilizing plaster cast Central venous access Age >= 75 History of VTE Family history of VTE Factor V Leiden Prothrombin [id number] Lupus anticoagulant Anticardiolipin antibodies Elevated serum homocysteine Heparin-induced thrombocytopenia Other congenital or acquired thrombophilia Stroke (< 1 month) Elective arthroplasty Hip, pelvis, or leg fracture Acute spinal cord injury (< 1 month) Prophylaxis Regimen Total Risk Factor Score Risk Level Prophylaxis Regimen 0-1 Low Early ambulation 2 Moderate Order ONE of the following: *Sequential Compression Device (SCD) *Heparin 5000 units SQ BID 3-4 Higher Order ONE of the following medications: *Heparin 5000 units SQ TID *Enoxaparin/Lovenox 40 mg SQ daily (WT < 150 kg, CrCl > 30 mL/min) *Enoxaparin/Lovenox 30 mg SQ daily (WT < 150 kg, CrCl > 10-29 mL/min) *Enoxaparin/Lovenox 30 mg SQ BID (WT < 150 kg, CrCl > 30 mL/min) AND/OR *Sequential Compression Device (SCD) 5 or more Highest Order ONE of the following medications: *Heparin 5000 units SQ TID (Preferred with Epidurals) *Enoxaparin/Lovenox 40 mg SQ daily (WT < 150 kg, CrCl > 30 mL/min) *Enoxaparin/Lovenox 30 mg SQ daily (WT < 150 kg, CrCl > 10-29 mL/min) *Enoxaparin/Lovenox 30 mg SQ BID (WT < 150 kg, CrCl > 30 mL/min) AND *Sequential Compression Device (SCD) Assessment and Plan Assessment and Plan Atrial fibrillation with RVR Hypokalemia C. difficile diarrhea H/o HLD EKG shows A. fib at 137 on arrival. Cardiac monitoring initially showed A. fib with RVR but has spontaneously converted to sinus rhythm in the 80s while in the ED He received a liter normal saline IV bolus. Continue maintenance IVF NS Received 50 mg replacement in the ED. give additional 40 IV KCL. Add mag supplement Check mag and replace mag and K Monitor on telemetry Start metoprolol 12.5 mg po bid hold if SBP< 100. Resume ASA. Check 2D ECHO Consult his cardiology Dr Nelson. Resume home meds as appropriate Add lactinex Patient is taking vanco PO for c diff will continue. Also continue statin and ASA. DVT ppx scd/teds/lovenox Discussed Condition With The patient, nurse, ED physician Lucia Bright MD Feb 04, 2018 15:51
[2018-02-04] MEDS ORDERED: MAGNESIUM OXIDE 400 MG TAB PO ONE (16:00)
[2018-02-04] MEDS ORDERED: PILL SPLITTER OTHER PRN (17:00)
[2018-02-04] MEDS: POTASSIUM CHLOR 20 MEQ PREMIX 100 ML IV SCH ×2 (17:30→19:07)
--- NOTE | 2018-02-04 19:20 | MB ---
cc: Holly Bland MD, Beth A MD DATE: 02/04/2018 REASON FOR CONSULTATION: Atrial fibrillation. HISTORY OF PRESENT ILLNESS: Mr. Inder Kaplan is a 77-year-old patient of mine whom I have followed for bradycardia. He presented today to the emergency room with palpitations and was found to be in A-fib with RVR. He spontaneously converted back to sinus rhythm. The patient notes he has been battling with C. diff and has had diarrhea. The records also show some significant hypokalemia. OUTPATIENT MEDICATIONS: Aspirin, simvastatin and vancomycin. PAST MEDICAL HISTORY: Includes bradycardia. SOCIAL HISTORY: The patient does not drink or smoke. FAMILY HISTORY: Noncontributory. PHYSICAL EXAMINATION: VITAL SIGNS: 98.2, 88, 18, 122/68. GENERAL: He is a thin, elderly man who is in no apparent distress. NECK: Free from JVD. LUNGS: Bilaterally clear to auscultation. CARDIOVASCULAR: He has a normal S1 and S2. I did not appreciate any murmurs, rubs or gallops. ABDOMEN: Soft. EXTREMITIES: Free from edema. LABORATORY DATA: Significant for a hemoglobin of 13.2, potassium was 2.6 and troponin is 0.02. CARDIOLOGY STUDIES: Telemetry currently shows a sinus rhythm. EKG does show atrial fibrillation with rapid ventricular rate at 140 beats a minute. ASSESSMENT AND PLAN: New onset atrial fibrillation - this may have been in part exacerbated by his hypokalemia and C. difficile. This is being taken care by the primary team. He has converted back into sinus rhythm. His CHADS-VASc score is 2 for age over 75. Of note, the patient questioned whether he had a prior cerebrovascular accident/transient ischemia attack in 2016. Review of the records does not show this to be the case. After a thorough discussion of his anticoagulant options, the patient would like to go on Eliquis. Of note, the patient denies any syncopal episodes and specifically states that in 2016 he did not completely pass out. In any case, I do think anticoagulation is reasonable and I do agree with low dose beta rima. If he remains in sinus rhythm and his potassium is back in range, it is reasonable from a cardiac perspective to discharge him. MD NISHANT Hare/ , 06:53 PM , 07:19 PM
[2018-02-04 20:21] LABS: BICARBONATE 28.8 MEQ/L (21.0-32.0); CALCIUM 7.6 MG/DL (8.5-10.1); CREATININE 0.53 MG/DL (0.60-1.30)
[2018-02-04] MEDS: SODIUM CHLORIDE 0.9% FLUSH 10 ML FLUSH IV FLUSH SCH (21:00)
[2018-02-04] MEDS ORDERED: DOCUSATE SODIUM 50 MG/SENNA 8.6 MG TAB PO SCH (21:00)
[2018-02-04] MEDS: APIXABAN 5 MG TABLET PO SCH (21:26)
[2018-02-04] MEDS: PRAVASTATIN SOD 80 MG TAB PO SCH (21:26)
[2018-02-04] MEDS: METOPROLOL TARTRATE 25 MG TAB PO SCH (21:27)
[2018-02-05] VITALS (10 sets, daily range): BP systolic 100–131; BP diastolic 53–68; PULSE 52–63; RESP 16–20; TEMP 97.8–98.2; O2SAT 94–100
[2018-02-05] MEDS ORDERED: POTASSIUM CHLORIDE 10 MEQ CONTROLLED RELEASE TAB PO ONE (04:00)
[2018-02-05] MEDS: SODIUM CHLOR 0.9% 1000 ML INJ 1,000 ML IV SCH (05:07)
[2018-02-05] MEDS: SODIUM CHLORIDE 0.9% FLUSH 10 ML FLUSH IV FLUSH SCH ×2 (09:00→19:57)
[2018-02-05] MEDS ORDERED: ASPIRIN 81 MG CHEW TAB CHEW SCH (09:00)
--- NOTE | 2018-02-05 09:08 | HHI.PR ---
Subjective Remarks The patient says he has frequent diarrhea since yesterday. No much abdominal cramps. Potassium by IV was not administered because IV was leaking repeat potassium still low. Will reorder potassium. He denies any chest pain or shortness of breath no palpitations. Says overall he feels improved today.. Objective Vitals Vital Signs Date Time Temp Pulse Resp B/P (MAP) Pulse Ox O2 Delivery O2 Flow Rate FiO2 02/05/18 07:00 Room Air 02/05/18 04:00 98.0 58 19 100/54 (69) 98 02/05/18 04:00 52 02/05/18 00:00 98.1 58 16 111/53 (72) 97 02/05/18 00:00 57 02/04/18 20:00 65 02/04/18 20:00 97.6 64 17 107/52 (70) 99 02/04/18 20:00 Room Air 02/04/18 17:20 98.2 82 18 122/68 (86) 96 02/04/18 17:17 96 21 02/04/18 15:56 60 02/04/18 13:49 97.9 78 19 112/61 (78) 96 02/04/18 13:00 Room Air 02/04/18 12:49 82 18 100/60 (73) 98 02/04/18 12:15 Room Air 02/04/18 10:30 61 18 92/51 (65) 97 Room Air 02/04/18 09:30 64 22 95/62 (73) 97 Room Air I/O 02/04/18 02/04/18 02/04/18 02/05/18 02/05/18 02/05/18 07:00 15:00 23:00 07:00 15:00 23:00 Intake Total 420 ml Output Total 850 ml Balance -430 ml Intake Oral 420 ml Output Urine Total 850 ml # Voids 1 1 # Bowel Movements 3 7 Result Diagram: 02/04/18 0645 02/05/18 0015 Imaging Last Impressions Chest X-Ray 02/04/18 0652 Signed Impressions: CONCLUSION: No acute cardiopulmonary disease. Objective Remarks GENERAL: This is a well-nourished, well-developed patient, in no apparent distress. CARDIOVASCULAR: Regular rate and rhythm without murmurs, gallops, or rubs. RESPIRATORY: Clear to auscultation. Breath sounds equal bilaterally. No wheezes , rales, or rhonchi. GASTROINTESTINAL: Abdomen soft, non-tender, nondistended. No hepato-splenomegaly , or palpable masses. No guarding. MUSCULOSKELETAL: Extremities without clubbing, cyanosis, or edema. No joint tenderness, effusion, or edema noted. No calf tenderness. Negative Homans sign bilaterally. NEUROLOGICAL: Awake and alert. Cranial nerves II through XII intact. Motor and sensory grossly within normal limits. Five out of 5 muscle strength in all muscle groups. Normal speech. A/P Assessment and Plan Persistent atrial fibrillation with RVR Hypokalemia C. difficile diarrhea H/o HLD EKG shows A. fib at 137 on arrival. Cardiac monitoring initially showed A. fib with RVR but has spontaneously converted to sinus rhythm in the 80s while in the ED He received a liter normal saline IV bolus. Continue maintenance IVF NS Continue potassium supplement as patient with severe hypokalemia. Starte 1/2 NS with 20 MEq KCL. Continue mag supplement Check mag and replace mag and K as indicated. Monitor on telemetry Start metoprolol 12.5 mg po bid hold if SBP< 100. Start Eliquis 5 mg p.o. twice daily. Check 2D ECHO Consult his cardiology Dr Bland. Resume home meds as appropriate Add lactinex Patient is taking vanco PO for c diff will continue. Also continue statin and ASA. DVT ppx scd/teds/lovenox Discussed Condition With The patient, nurse. Lucia Morris MD Feb 05, 2018 09:08
[2018-02-05] MEDS ORDERED: MAGNESIUM OXIDE 400 MG TAB PO ONE (09:15)
[2018-02-05] MEDS: VANCOMYCIN 500 MG VIAL (FOR ORAL USE ONLY) PO SCH ×4 (09:39→19:58)
[2018-02-05] MEDS: MAGNESIUM OXIDE 400 MG TAB PO SCH (09:39)
[2018-02-05] MEDS: METOPROLOL TARTRATE 25 MG TAB PO SCH ×2 (09:40→19:57)
[2018-02-05] MEDS: LACTOBACILLUS ACIDOPHILUS TAB PO SCH ×3 (09:40→18:08)
[2018-02-05] MEDS: APIXABAN 5 MG TABLET PO SCH ×2 (09:40→19:57)
[2018-02-05] MEDS: 1/2 NS + KCL 20 MEQ INJ 1,000 ML IV SCH ×2 (09:48→19:57)
[2018-02-05 12:46] LABS: AUTOMATED NEUTROPHIL # 2.5 TH/MM3 (1.8-7.7); BASOPHIL # 0.1 TH/MM3 (0-0.2); BASOPHIL % 1.3 % (0.0-2.0); EOSINOPHIL # 0.1 TH/MM3 (0-0.4); HEMOGLOBIN 12.9 GM/DL (13.0-17.0); LYMPH % 42.7 % (9.0-44.0); LYMPHOCYTE # 2.3 TH/MM3 (1.0-4.8); MEAN CELL VOLUME 89.5 FL (80.0-100.0); MEAN CORPUSCULAR HEMOGLOBIN 31.1 PG (27.0-34.0); MEAN CORPUSCULAR HGB CONC 34.7 % (32.0-36.0); MEAN PLATELET VOLUME 9.3 FL (7.0-11.0); MONO % 8.1 % (0.0-8.0); MONOCYTE # 0.4 TH/MM3 (0-0.9); NEUT % 46.9 % (16.0-70.0); PLATELET COUNT 327 TH/MM3 (150-450); RED BLOOD COUNT 4.14 MIL/MM3 (4.50-5.90); RED CELL DISTRIBUTION WIDTH 14.4 % (11.6-17.2); WHITE BLOOD COUNT 5.3 TH/MM3 (4.0-11.0)
[2018-02-05 13:14] LABS: BICARBONATE 30.2 MEQ/L (21.0-32.0); CALCIUM 8.1 MG/DL (8.5-10.1); CREATININE 0.63 MG/DL (0.60-1.30); MAGNESIUM 2.2 MG/DL (1.5-2.5)
[2018-02-05] MEDS ORDERED: POTASSIUM BICARBONATE 25 MEQ EFFERVESCENT TAB PO ONE (14:30)
[2018-02-05] MEDS: POTASSIUM CHLOR 20 MEQ PREMIX 100 ML IV SCH ×2 (14:51→16:55)
[2018-02-05] MEDS: NYSTATIN SUSP 500,000 U/5 ML CUP SWISH-SWAL SCH ×2 (18:08→19:58)
[2018-02-05] MEDS: PRAVASTATIN SOD 80 MG TAB PO SCH (19:58)
--- NOTE | 2018-02-05 23:32 | ECHRPT ---
Indication: AFIB/FLUTTER CONCLUSIONS Normal left ventricular size and wall thickness. The left ventricular systolic function is normal wi th an estimated ejection fraction in the range of 60-65%. Normal wall motion. Trace mitral valve regurgitation. There is trace tricuspid valve regurgitation. BP: / HR: 64 Rhythm: Sinus MEASUREMENTS (Male / Female) Normal Values Technical Quality:Fair 2D ECHO LV Diastolic Diameter PLAX 4.7 cm 4.2 - 5.9 / 3.9 - 5.3 cm LV Systolic Diameter PLAX 3.5 cm IVS Diastolic Thickness 0.9 cm 0.6 - 1.0 / 0.6 - 0.9 cm LVPW Diastolic Thickness 0.7 cm 0.6 - 1.0 / 0.6 - 0.9 cm LV Relative Wall Thickness 0.3 RV Internal Dim ED PLAX 2.3 cm LVOT Diameter 2.1 cm LA Systolic Diameter LX 3.1 cm 3.0 - 4.0 / 2.7 - 3.8 cm M-MODE Aortic Root Diameter MM 3.0 cm LA Systolic Diameter MM 3.7 cm LA Ao Ratio MM 1.2 AV Cusp Separation MM 2.1 cm DOPPLER AV Peak Velocity 155.0 cm/s AV Peak Gradient 9.6 mmHg LVOT Peak Velocity 121.0 cm/s LVOT Peak Gradient 5.9 mmHg AV Area Cont Eq pk 2.7 cm MV Area PHT 2.9 cm Mitral E Point Velocity 80.0 cm/s Mitral A Point Velocity 63.7 cm/s Mitral E to A Ratio 1.3 LV E' Lateral Velocity 15.6 cm/s Mitral E to LV E' Lateral Ratio 5.1 LV E' Septal Velocity 10.5 cm/s Mitral E to LV E' Septal Ratio 7.6 TR Peak Velocity 252.0 cm/s TR Peak Gradient 25.4 mmHg Right Atrial Pressure 10.0 mmHg Pulmonary Artery Systolic Pressu 35.4 mmHg Right Ventricular Systolic Press 35.4 mmHg FINDINGS LEFT VENTRICLE Normal left ventricular size and wall thickness. The left ventricular systolic function is normal wi th an estimated ejection fraction in the range of 60-65%. Normal wall motion. RIGHT VENTRICLE Normal right ventricular size and systolic function. LEFT ATRIUM The left atrial size is normal. RIGHT ATRIUM The right atrial size is normal. ATRIAL SEPTUM Normal atrial septal thickness without atrial level shunting by limited color doppler interrogation. AORTA The aortic root and proximal ascending aorta are normal in size on limited imaging. MITRAL VALVE Trace mitral valve regurgitation. AORTIC VALVE Trileaflet aortic valve. No aortic valve stenosis or regurgitation. TRICUSPID VALVE Structurally normal tricuspid valve. There is trace tricuspid valve regurgitation. PULMONARY VALVE Trivial pulmonary valve regurgitation. VESSELS The inferior vena cava is normal in size. PERICARDIUM No pericardial effusion. Donell Granados MD (Electronically Signed) Final Date:05 February 2018 23:30
[2018-02-06] VITALS (9 sets, daily range): BP systolic 113–130; BP diastolic 60–64; PULSE 53–73; RESP 16–20; TEMP 97.9–98.8; O2SAT 95–99
[2018-02-06] MEDS: NYSTATIN SUSP 500,000 U/5 ML CUP SWISH-SWAL SCH ×4 (08:41→20:24)
[2018-02-06] MEDS: 1/2 NS + KCL 20 MEQ INJ 1,000 ML IV SCH ×2 (08:41→20:25)
[2018-02-06] MEDS: METOPROLOL TARTRATE 25 MG TAB PO SCH (08:41)
[2018-02-06] MEDS: MAGNESIUM OXIDE 400 MG TAB PO SCH (08:41)
[2018-02-06] MEDS: LACTOBACILLUS ACIDOPHILUS TAB PO SCH ×3 (08:42→17:42)
[2018-02-06] MEDS: VANCOMYCIN 500 MG VIAL (FOR ORAL USE ONLY) PO SCH ×4 (08:42→20:24)
[2018-02-06] MEDS: SODIUM CHLORIDE 0.9% FLUSH 10 ML FLUSH IV FLUSH SCH ×2 (08:42→20:24)
[2018-02-06] MEDS: APIXABAN 5 MG TABLET PO SCH ×2 (08:42→20:24)
--- NOTE | 2018-02-06 09:51 | HHI.PR ---
Subjective Remarks Follow-up multiple medical problems A. fib with RVR new onset, C. difficile diarrhea with severe electrolyte disturbance hypokalemia. With HR in 50s, decrease metoprolol No chest pain, diaphoresis, nausea or vomiting. Still with frequent diarrhea. Some intermittent abdominal cramps. Able to eat some more today and keep down food. Potassium back to normal. Monitor and replace as needed. Patient still with diarrhea. Very supportive, family at bedside. Objective Vitals Vital Signs Date Time Temp Pulse Resp B/P (MAP) Pulse Ox O2 Delivery O2 Flow Rate FiO2 02/06/18 07:00 Room Air 02/06/18 04:00 Room Air 02/06/18 04:00 98.0 53 16 126/64 (84) 99 02/06/18 00:00 Room Air 02/06/18 00:00 98.3 55 17 121/62 (81) 99 02/06/18 00:00 Room Air 02/05/18 23:52 52 02/05/18 21:44 53 02/05/18 20:00 Room Air 02/05/18 20:00 98.2 59 17 119/68 (85) 100 02/05/18 19:50 60 02/05/18 19:28 21 02/05/18 16:00 61 02/05/18 16:00 97.8 57 20 131/61 (84) 97 02/05/18 14:19 98 21 02/05/18 12:00 97.8 60 20 105/59 (74) 94 02/05/18 12:00 63 I/O 02/05/18 02/05/18 02/05/18 02/06/18 02/06/18 02/06/18 07:00 15:00 23:00 07:00 15:00 23:00 Intake Total 420 ml 300 ml 3472 ml 520 ml Output Total 850 ml Balance -430 ml 300 ml 3472 ml 520 ml Intake Oral 420 ml 360 ml 520 ml IV Total 300 ml 3112 ml Output Urine Total 850 ml # Voids 1 4 6 # Bowel Movements 7 4 3 Result Diagram: 02/05/18 1154 02/05/18 1154 Imaging Last Impressions Chest X-Ray 02/04/18 0652 Signed Impressions: CONCLUSION: No acute cardiopulmonary disease. Objective Remarks GENERAL: This is a very pleasant 77-year-old male, well-nourished, well- developed patient, in no apparent distress. CARDIOVASCULAR: Regular rate and rhythm without murmurs, gallops, or rubs. RESPIRATORY: Clear to auscultation. Breath sounds equal bilaterally. No wheezes , rales, or rhonchi. GASTROINTESTINAL: Abdomen soft, non-tender, nondistended. No hepato-splenomegaly , or palpable masses. No guarding. MUSCULOSKELETAL: Extremities without clubbing, cyanosis, or edema. No joint tenderness, effusion, or edema noted. No calf tenderness. Negative Homans sign bilaterally. NEUROLOGICAL: Awake and alert. Cranial nerves II through XII intact. Motor and sensory grossly within normal limits. Five out of 5 muscle strength in all muscle groups. Normal speech. A/P Assessment and Plan Persistent atrial fibrillation with RVR Hypokalemia C. difficile diarrhea H/o HLD EKG shows A. fib at 137 on arrival. Cardiac monitoring initially showed A. fib with RVR but has spontaneously converted to sinus rhythm in the 80s while in the ED He received a liter normal saline IV bolus. Continue maintenance IVF NS Continue potassium supplement as patient with severe hypokalemia. Starte 1/2 NS with 20 MEq KCL. Continue mag supplement Check mag and replace mag and K as indicated. Monitor on telemetry HR noted in 50s, decreased metoprolol to 12.5 mg po daily, hold if SBP< 100 and HR< 65. Continue Eliquis 5 mg p.o. twice daily. DC ASA. 2D ECHO with normal ejection fraction 55% Consult his cardiology Dr Bland, appreciate recs Resume home meds as appropriate Also continue statin. C fidd diarrhea persistent and with persistent hypokalemia: Add lactinex. Increase Vanco PO to 500 mg 4 times daily for c diff . Monitor and replace electrolytes. DVT ppx scd/teds/apixaban Discussed Condition With The patient, nurse, family. DC plan: DC when improved, electrolytes resolved and no more n/v/d. Lucia Morris MD Feb 06, 2018 09:51
[2018-02-06 10:00] LABS: AUTOMATED NEUTROPHIL # 1.8 TH/MM3 (1.8-7.7); BASOPHIL % 0.8 % (0.0-2.0); EOSINOPHIL # 0.1 TH/MM3 (0-0.4); EOSINOPHIL % 2.1 % (0.0-4.0); HEMATOCRIT 37.4 % (39.0-51.0); HEMOGLOBIN 12.8 GM/DL (13.0-17.0); LYMPH % 45.7 % (9.0-44.0); LYMPHOCYTE # 1.9 TH/MM3 (1.0-4.8); MEAN CELL VOLUME 89.3 FL (80.0-100.0); MEAN CORPUSCULAR HEMOGLOBIN 30.6 PG (27.0-34.0); MEAN CORPUSCULAR HGB CONC 34.3 % (32.0-36.0); MEAN PLATELET VOLUME 8.8 FL (7.0-11.0); MONO % 9.1 % (0.0-8.0); MONOCYTE # 0.4 TH/MM3 (0-0.9); NEUT % 42.3 % (16.0-70.0); PLATELET COUNT 330 TH/MM3 (150-450); RED BLOOD COUNT 4.18 MIL/MM3 (4.50-5.90); WHITE BLOOD COUNT 4.2 TH/MM3 (4.0-11.0)
[2018-02-06 10:37] LABS: BICARBONATE 28.6 MEQ/L (21.0-32.0); CALCIUM 8.2 MG/DL (8.5-10.1); CREATININE 0.49 MG/DL (0.60-1.30); MAGNESIUM 2.2 MG/DL (1.5-2.5)
[2018-02-06] MEDS: PRAVASTATIN SOD 80 MG TAB PO SCH (20:24)
[2018-02-07] VITALS (10 sets, daily range): BP systolic 102–136; BP diastolic 52–65; PULSE 53–91; RESP 16–20; TEMP 97.7–98.1; O2SAT 97–100
[2018-02-07 08:23] LABS: CALCIUM 8.5 MG/DL (8.5-10.1); CREATININE 0.58 MG/DL (0.60-1.30); MAGNESIUM 2.4 MG/DL (1.5-2.5)
[2018-02-07] MEDS: LACTOBACILLUS ACIDOPHILUS TAB PO SCH ×3 (08:41→18:36)
[2018-02-07] MEDS: VANCOMYCIN 500 MG VIAL (FOR ORAL USE ONLY) PO SCH ×4 (08:42→21:25)
[2018-02-07] MEDS: MAGNESIUM OXIDE 400 MG TAB PO SCH (08:42)
[2018-02-07] MEDS: METOPROLOL TARTRATE 25 MG TAB PO SCH (08:42)
[2018-02-07] MEDS: APIXABAN 5 MG TABLET PO SCH ×2 (08:42→21:25)
[2018-02-07] MEDS: SODIUM CHLORIDE 0.9% FLUSH 10 ML FLUSH IV FLUSH SCH ×2 (08:43→21:25)
[2018-02-07] MEDS: NYSTATIN SUSP 500,000 U/5 ML CUP SWISH-SWAL SCH ×4 (08:43→21:25)
[2018-02-07] MEDS: 1/2 NS + KCL 20 MEQ INJ 1,000 ML IV SCH ×2 (08:53→21:24)
[2018-02-07] MEDS ORDERED: POTASSIUM BICARBONATE 25 MEQ EFFERVESCENT TAB PO ONE (11:30)
--- NOTE | 2018-02-07 13:26 | HHI.PR ---
Subjective Remarks Still with diarrhea less frequent not forming stool yet. No fever or chills. Mild intermittent abdominal cramps however improved significantly. Potassium better controlled. No nausea vomiting able to tolerate food. Objective Vitals Vital Signs Date Time Temp Pulse Resp B/P (MAP) Pulse Ox O2 Delivery O2 Flow Rate FiO2 02/07/18 12:00 91 02/07/18 12:00 72 02/07/18 08:00 97.8 58 20 126/63 (84) 98 02/07/18 07:48 90 02/07/18 07:00 Room Air 02/07/18 04:00 Room Air 02/07/18 04:00 97.9 53 16 134/64 (87) 98 02/07/18 03:45 65 02/07/18 00:00 Room Air 02/07/18 00:00 97.7 54 16 136/65 (88) 100 02/06/18 23:45 72 02/06/18 20:00 Room Air 02/06/18 20:00 98.8 57 17 130/62 (84) 99 02/06/18 19:47 57 02/06/18 16:00 97.9 69 20 122/60 (80) 96 02/06/18 16:00 59 I/O 02/06/18 02/06/18 02/06/18 02/07/18 02/07/18 02/07/18 07:00 15:00 23:00 07:00 15:00 23:00 Intake Total 520 ml 1378 ml 720 ml Output Total 650 ml Balance 520 ml 1378 ml 70 ml Intake Oral 520 ml 360 ml 720 ml IV Total 1018 ml Output Urine Total 650 ml # Voids 6 4 # Bowel Movements 3 0 2 Result Diagram: 02/06/18 0933 02/07/18 0729 Imaging Last Impressions Chest X-Ray 02/04/18 0652 Signed Impressions: CONCLUSION: No acute cardiopulmonary disease. Objective Remarks GENERAL: This is a very pleasant 77-year-old male, well-nourished, well- developed patient, in no apparent distress. CARDIOVASCULAR: Regular rate and rhythm without murmurs, gallops, or rubs. RESPIRATORY: Clear to auscultation. Breath sounds equal bilaterally. No wheezes , rales, or rhonchi. GASTROINTESTINAL: Abdomen soft, non-tender, nondistended. No hepato-splenomegaly , or palpable masses. No guarding. MUSCULOSKELETAL: Extremities without clubbing, cyanosis, or edema. No joint tenderness, effusion, or edema noted. No calf tenderness. Negative Homans sign bilaterally. NEUROLOGICAL: Awake and alert. Cranial nerves II through XII intact. Motor and sensory grossly within normal limits. Five out of 5 muscle strength in all muscle groups. Normal speech. A/P Assessment and Plan Persistent atrial fibrillation with RVR Hypokalemia C. difficile diarrhea H/o HLD EKG shows A. fib at 137 on arrival. Cardiac monitoring initially showed A. fib with RVR but has spontaneously converted to sinus rhythm in the 80s while in the ED He received a liter normal saline IV bolus. Continue maintenance IVF NS Continue potassium supplement as patient with severe hypokalemia. Starte 1/2 NS with 20 MEq KCL. Continue mag supplement Check mag and replace mag and K as indicated. Monitor on telemetry HR noted in 50s, decreased metoprolol to 12.5 mg po daily, hold if SBP< 100 and HR< 65. Continue Eliquis 5 mg p.o. twice daily. DC ASA. 2D ECHO with normal ejection fraction 55% Consult his cardiology Dr Bland, appreciate recs Resume home meds as appropriate Also continue statin. C fidd diarrhea persistent and with persistent hypokalemia: Add lactinex. Increase Vanco PO to 500 mg 4 times daily for c diff . Monitor and replace electrolytes. DVT ppx scd/teds/apixaban Discussed Condition With The patient, nurse, family. DC plan: DC when improved, electrolytes resolved and no more n/v/d. Lucia Morris MD Feb 07, 2018 13:26
[2018-02-07] MEDS: PRAVASTATIN SOD 80 MG TAB PO SCH (21:25)
[2018-02-08] VITALS (10 sets, daily range): BP systolic 107–136; BP diastolic 55–66; PULSE 51–89; RESP 16–20; TEMP 97.5–97.8; O2SAT 96–100
[2018-02-08 07:13] LABS: BICARBONATE 23.1 MEQ/L (21.0-32.0); CREATININE 0.64 MG/DL (0.60-1.30)
[2018-02-08 07:21] LABS: MAGNESIUM 2.4 MG/DL (1.5-2.5)
[2018-02-08] MEDS: METOPROLOL TARTRATE 25 MG TAB PO SCH (08:48)
[2018-02-08] MEDS: 1/2 NS + KCL 20 MEQ INJ 1,000 ML IV SCH (08:49)
[2018-02-08] MEDS: LACTOBACILLUS ACIDOPHILUS TAB PO SCH ×3 (08:49→17:25)
[2018-02-08] MEDS: SODIUM CHLORIDE 0.9% FLUSH 10 ML FLUSH IV FLUSH SCH ×2 (08:49→20:36)
[2018-02-08] MEDS: APIXABAN 5 MG TABLET PO SCH ×2 (08:49→20:38)
[2018-02-08] MEDS: NYSTATIN SUSP 500,000 U/5 ML CUP SWISH-SWAL SCH ×4 (08:50→20:37)
[2018-02-08] MEDS: VANCOMYCIN 500 MG VIAL (FOR ORAL USE ONLY) PO SCH ×4 (08:50→20:38)
--- NOTE | 2018-02-08 09:25 | HHI.PR ---
Subjective Remarks With diarrhea. Some improvement. No fever or chills. Some abdominal cramps at times. No nausea or vomiting. Potassium is back to normal. No palpitations , no chest pain. Objective Vitals Vital Signs Date Time Temp Pulse Resp B/P (MAP) Pulse Ox O2 Delivery O2 Flow Rate FiO2 02/08/18 08:08 97.5 64 18 117/59 (78) 98 02/08/18 04:33 97.6 89 16 136/66 (89) 96 02/08/18 04:00 51 02/08/18 00:00 51 02/07/18 23:46 98.0 58 16 117/56 (76) 97 02/07/18 21:32 Room Air 02/07/18 21:17 21 02/07/18 20:34 98.0 58 16 111/58 (75) 97 02/07/18 20:00 57 02/07/18 16:00 55 02/07/18 16:00 98.1 57 20 102/52 (69) 98 02/07/18 12:00 97.9 58 20 120/60 (80) 98 02/07/18 12:00 91 02/07/18 12:00 72 I/O 02/07/18 02/07/18 02/07/18 02/08/18 02/08/18 02/08/18 07:00 15:00 23:00 07:00 15:00 23:00 Intake Total 720 ml 480 ml 600 ml Output Total 650 ml 650 ml Balance 70 ml 480 ml -50 ml Intake Oral 720 ml 480 ml 600 ml Output Urine Total 650 ml 650 ml # Voids 4 # Bowel Movements 2 4 0 Result Diagram: 02/06/18 0933 02/08/18 0550 Imaging Last Impressions Chest X-Ray 02/04/18 0652 Signed Impressions: CONCLUSION: No acute cardiopulmonary disease. Objective Remarks GENERAL: This is a very pleasant 77-year-old male, well-nourished, well- developed patient, in no apparent distress. CARDIOVASCULAR: Regular rate and rhythm without murmurs, gallops, or rubs. RESPIRATORY: Clear to auscultation. Breath sounds equal bilaterally. No wheezes , rales, or rhonchi. GASTROINTESTINAL: Abdomen soft, non-tender, nondistended. No hepato-splenomegaly , or palpable masses. No guarding. MUSCULOSKELETAL: Extremities without clubbing, cyanosis, or edema. No joint tenderness, effusion, or edema noted. No calf tenderness. Negative Homans sign bilaterally. NEUROLOGICAL: Awake and alert. Cranial nerves II through XII intact. Motor and sensory grossly within normal limits. Five out of 5 muscle strength in all muscle groups. Normal speech. A/P Assessment and Plan Persistent atrial fibrillation with RVR Hypokalemia C. difficile diarrhea H/o HLD EKG shows A. fib at 137 on arrival. Cardiac monitoring initially showed A. fib with RVR but has spontaneously converted to sinus rhythm in the 80s while in the ED He received a liter normal saline IV bolus. Continue maintenance IVF NS Continue potassium supplement as patient with severe hypokalemia. Starte 1/2 NS with 20 MEq KCL. Continue mag supplement Check mag and replace mag and K as indicated. Monitor on telemetry HR noted in 50s, decreased metoprolol to 12.5 mg po daily, hold if SBP< 100 and HR< 65. Continue Eliquis 5 mg p.o. twice daily. DC ASA. 2D ECHO with normal ejection fraction 55% Consult his cardiology Dr Bland, appreciate recs Resume home meds as appropriate Also continue statin. C diff diarrhea persistent and with persistent hypokalemia: Might be secretory component. Add lactinex. Repeat C diff here is however negative. Vanco PO to 125 mg 4 times daily for c diff . Monitor and replace electrolytes. Add Lactinex. Give cholestyramine. Monitor for improvement. DVT ppx scd/teds/apixaban Discussed Condition With The patient, nurse, family. DC plan: DC when improved, electrolytes resolved and no more n/v/d. Possible discharge tomorrow if improves Lucia Morris MD Feb 08, 2018 09:25
[2018-02-08] MEDS ORDERED: APIX5TAB PO (09:30)
[2018-02-08] MEDS ORDERED: VANC500I3 PO (09:30)
[2018-02-08] MEDS ORDERED: METO25TA3 PO (09:30)
[2018-02-08] MEDS ORDERED: LACT PO (09:31)
--- NOTE | 2018-02-08 09:31 | HHI.DS ---
Discharge Summary Admission Date Feb 05, 2018 at 09:13 Discharge Date: Feb 11, 2018 Admitting Diagnosis afib with rvr,hypokalemia,c diff (1) Gastritis ICD Code: K29.70 - Gastritis, unspecified, without bleeding (2) Atrial fibrillation with RVR ICD Code: I48.91 - Unspecified atrial fibrillation Status: Acute (3) New onset a-fib ICD Code: I48.91 - Unspecified atrial fibrillation Status: Acute (4) C. difficile diarrhea ICD Code: A04.72 - Enterocolitis due to Clostridium difficile, not specified as recurrent Status: Acute (5) Hypokalemia, gastrointestinal losses ICD Code: E87.6 - Hypokalemia Status: Acute (6) Hyperlipidemia ICD Code: E78.5 - Hyperlipidemia, unspecified Status: Acute Procedures none Brief History - From Admission The patient is a pleasant 77-year-old male with past medical history of hyperlipidemia, c diff diarrhea, who woke up this morning feeling dizzy and lightheaded. He had palpitations and a sensation of racing heartbeat. He called paramedics who brought him to the emergency room. He arrived with A. fib with RVR and a rate of 137. He did not have any chest pain or pressure. No syncope. Patient does have history of A. fib in the past and takes a baby aspirin daily. He has baseline low blood pressure and does not take rate limiting medications. He follows with Dr. Bland yearly basis but has not had to treat the A. fib. Symptoms are moderately severe. No alleviating factors. No exacerbating factors. Has multiple BM says 15-20 per day at times. He is still with diarrhea and also says he is not eating much. No fever or chills. Has been treated for c diff but did not get better. He denies having abdominal pain /cramps. No nausea or vomiting. No fever or chills. No urinary complaints. Says he fees very weak. Says he used to be very active going to gym 3 times per week. Since diarrhea stated he feels very weak and not able to do much. He is feeling much better now however sill with diarrhea. CBC/BMP: 02/06/18 0933 02/08/18 0550 Significant Findings Laboratory Tests Test 02/05/18 11:54 02/06/18 09:33 02/07/18 07:29 02/08/18 05:50 Red Blood Count 4.14 MIL/MM3 (4.50-5.90) 4.18 MIL/MM3 (4.50-5.90) Hemoglobin 12.9 GM/DL (13.0-17.0) 12.8 GM/DL (13.0-17.0) Hematocrit 37.0 % (39.0-51.0) 37.4 % (39.0-51.0) Monocytes (%) (Auto) 8.1 % (0.0-8.0) 9.1 % (0.0-8.0) Blood Urea Nitrogen 4 MG/DL (7-18) 4 MG/DL (7-18) 4 MG/DL (7-18) Random Glucose 122 MG/DL (74-106) 73 MG/DL (74-106) Calcium Level 8.1 MG/DL (8.5-10.1) 8.2 MG/DL (8.5-10.1) Potassium Level 2.8 MEQ/L (3.5-5.1) Lymphocytes (%) (Auto) 45.7 % (9.0-44.0) Creatinine 0.49 MG/DL (0.60-1.30) 0.58 MG/DL (0.60-1.30) Imaging Last Impressions Abdomen/Pelvis CT 02/11/18 0000 Signed Impressions: CONCLUSION: 1. Equivocal findings suggesting possible diverticulitis with wall thickening of the sigmoid, minimal induration of the perisigmoid fat, and a minimal amount of free fluid in the dependent pelvis. 2. Evidence of chronic pyelonephritis right kidney. 3. Dilation of the collecting system and extrarenal pelvis of the left kidney; possible hydronephrosis. No cause for obstruction is identified. Chest X-Ray 02/04/18 0652 Signed Impressions: CONCLUSION: No acute cardiopulmonary disease. PE at Discharge GENERAL: This is a very pleasant 77-year-old male, well-nourished, well- developed patient, in no apparent distress. CARDIOVASCULAR: Regular rate and rhythm without murmurs, gallops, or rubs. RESPIRATORY: Clear to auscultation. Breath sounds equal bilaterally. No wheezes , rales, or rhonchi. GASTROINTESTINAL: Abdomen soft, non-tender, nondistended. No hepato-splenomegaly , or palpable masses. No guarding. MUSCULOSKELETAL: Extremities without clubbing, cyanosis, or edema. No joint tenderness, effusion, or edema noted. No calf tenderness. Negative Homans sign bilaterally. NEUROLOGICAL: Awake and alert. Cranial nerves II through XII intact. Motor and sensory grossly within normal limits. Five out of 5 muscle strength in all muscle groups. Normal speech. Hospital Course Persistent atrial fibrillation with RVR Hypokalemia C. difficile diarrhea per history, however repeat C diff here is negative. H/o HLD EKG shows A. fib at 137 on arrival. Cardiac monitoring initially showed A. fib with RVR but has spontaneously converted to sinus rhythm in the 80s while in the ED He received a liter normal saline IV bolus. Continue maintenance IVF NS Continue potassium supplement as patient with severe hypokalemia. Received 1/2 NS with 20 MEq KCL. K back to normal and tolerates food. DCd IVF, however pt with BP into a lower side and lightheaded, patient with profuse diarrhea, will start IVF. Will give PO if needs supplement. Continue mag supplement Check mag and replace mag and K as indicated. Monitor on telemetry HR noted in 50s, decreased metoprolol to 12.5 mg po daily, hold if SBP< 100 and HR< 65. Continue Eliquis 5 mg p.o. twice daily after procedure. DC ASA. 2D ECHO with normal ejection fraction 55% Consult his cardiology Dr Bland, appreciate recs Resume home meds as appropriate Also continue statin. S/P EGD: gastritis r/o celiac disease Hiatal hernia. Continue PPIs EGD in 1 year C diff diarrhea persistent and with persistent hypokalemia: Might be secretory component of diarrhea. Add lactinex. Repeat C diff here is however negative. Vanco PO 500 mg 4 times daily for C. diff . Monitor and replace electrolytes. Add Lactinex. Give cholestyramine. Monitor for improvement. Consult GI as patient is not improving. Consult GI , EGD 02/11/18. Check stool studies. DVT ppx scd/teds/apixaban Patient improved DC home to follow up as OP with PCP and consultants. F/u with GI in 4 weeks Pt Condition on Discharge: Stable Discharge Disposition: Discharge Home Discharge Time: > 30 minutes Discharge Instructions DIET: Follow Instructions for: As Tolerated, No Restrictions Activities you can perform: Regular-No Restrictions Follow up Referrals: Cardiology - 1 Week with Holly lBand MD Cardiology @ [facility] Gastroenterology - 4 Weeks with Suzy Burris MD PCP Follow-up - 2-3 Days PCP Follow-up @ [facility] PCP Follow-up @ [facility] New Medications: Pantoprazole (Pantoprazole) 20 Mg Tab 20 MG PO DAILY for Reflux, #30 TAB 0 Refills Apixaban (Eliquis) 5 Mg Tab 5 MG PO BID for Blood Clot Prevention, #120 TAB Cholestyramine (Cholestyramine) 4 Gm/Pkt Powd 4 GM PO DAILY for diarrhea for 7 Days, PACKET 1 packet contains 4 grams of cholestyramine. Lactobacillus Acidophilus (Acidophilus/l-Sporogenes) 35 Million Cell-25 Million Cell Tab 1 TAB PO TID for probiotic for 30 Days, TAB Mesalamine Supp (Canasa Supp) 1,000 Mg Supp 1000 MG RECTAL HS for diarrhea, #30 SUPP Metoprolol Tartrate (Metoprolol Tartrate) 25 Mg Tab 12.5 MG PO DAILY for a fib , #30 TAB Vancomycin Inj (Vancomycin Inj) 500 Mg Inj 500 MG PO QID for c diff for 14 Days, INJECTION Continued Medications: Multiple Vitamins W/ Minerals (Centrum Silver) 400 Mcg-250 Mcg Chw 1 TAB Simvastatin (Simvastatin) 40 Mg Tab 40 MG PO HS for Cholesterol Management, #30 TAB 0 Refills Discontinued Medications: Aspirin (Aspirin Low Dose) 81 Mg Chew 81 MG CHEW DAILY, TAB 0 Refills Vancomycin (Vancomycin) 125 Mg Cap 125 MG PO QID for Infection for 10 Days, CAP 0 Refills Lucia Morris MD Feb 08, 2018 09:31
[2018-02-08] MEDS ORDERED: LOPERAMIDE HCL 2 MG CAP PO PRN (14:15)
[2018-02-08] MEDS ORDERED: LOPERAMIDE HCL 2 MG CAP PO ONE (14:15)
[2018-02-08] MEDS ORDERED: CHOLESTYRAMINE 4 GM PACKET PO ONE (14:15)
[2018-02-08] MEDS: PRAVASTATIN SOD 80 MG TAB PO SCH (20:37)
[2018-02-09] VITALS (13 sets, daily range): BP systolic 91–108; BP diastolic 51–80; PULSE 47–66; RESP 16–20; TEMP 97.4–98.5; O2SAT 96–99
[2018-02-09] MEDS: NYSTATIN SUSP 500,000 U/5 ML CUP SWISH-SWAL SCH ×4 (09:09→21:24)
[2018-02-09] MEDS: VANCOMYCIN 500 MG VIAL (FOR ORAL USE ONLY) PO SCH ×4 (09:09→21:24)
[2018-02-09] MEDS: APIXABAN 5 MG TABLET PO SCH (09:09)
[2018-02-09] MEDS: LACTOBACILLUS ACIDOPHILUS TAB PO SCH ×3 (09:09→18:21)
[2018-02-09] MEDS: CHOLESTYRAMINE 4 GM PACKET PO SCH (09:10)
[2018-02-09] MEDS: METOPROLOL TARTRATE 25 MG TAB PO SCH (09:10)
[2018-02-09] MEDS: SODIUM CHLORIDE 0.9% FLUSH 10 ML FLUSH IV FLUSH SCH ×2 (09:18→21:23)
[2018-02-09 09:43] LABS: BICARBONATE 28.6 MEQ/L (21.0-32.0); CALCIUM 9.2 MG/DL (8.5-10.1); CREATININE 0.67 MG/DL (0.60-1.30); MAGNESIUM 2.6 MG/DL (1.5-2.5)
--- NOTE | 2018-02-09 11:00 | HHI.PR ---
Subjective Remarks Patient in nad. No n/v/d/c. Still with significant diarrhea. No fever or chills. Intermittent abdominal cramps. Eating fairly well. Potassium is back to normal. Still on potassium supplements. No tachycardia. No chest pain. Normal sinus rhythm on telemetry. Objective Vitals Vital Signs Date Time Temp Pulse Resp B/P (MAP) Pulse Ox O2 Delivery O2 Flow Rate FiO2 02/09/18 08:30 98.3 56 18 102/57 (72) 98 02/09/18 08:00 53 02/09/18 08:00 Room Air 21 02/09/18 04:00 47 02/09/18 04:00 98.3 66 17 106/80 (89) 98 02/09/18 00:00 97.9 59 17 108/69 (82) 99 02/09/18 00:00 55 02/08/18 20:00 Room Air 02/08/18 20:00 53 02/08/18 20:00 97.7 55 19 107/58 (74) 98 02/08/18 17:15 97.8 65 20 112/60 (77) 98 02/08/18 16:00 57 02/08/18 12:15 97.5 57 18 109/55 (73) 100 02/08/18 12:00 53 I/O 02/08/18 02/08/18 02/08/18 02/09/18 02/09/18 02/09/18 07:00 15:00 23:00 07:00 15:00 23:00 Intake Total 600 ml 200 ml 720 ml 820 ml Output Total 650 ml 600 ml Balance -50 ml 200 ml 120 ml 820 ml Intake Oral 600 ml 720 ml 820 ml IV Total 200 ml Output Urine Total 650 ml 600 ml # Voids 7 # Bowel Movements 0 1 9 Result Diagram: 02/06/18 0933 02/09/18 0827 Imaging Last Impressions Chest X-Ray 02/04/18 0652 Signed Impressions: CONCLUSION: No acute cardiopulmonary disease. Objective Remarks GENERAL: This is a very pleasant 77-year-old male, well-nourished, well- developed patient, in no apparent distress. CARDIOVASCULAR: Regular rate and rhythm without murmurs, gallops, or rubs. RESPIRATORY: Clear to auscultation. Breath sounds equal bilaterally. No wheezes , rales, or rhonchi. GASTROINTESTINAL: Abdomen soft, non-tender, nondistended. No hepato-splenomegaly , or palpable masses. No guarding. MUSCULOSKELETAL: Extremities without clubbing, cyanosis, or edema. No joint tenderness, effusion, or edema noted. No calf tenderness. Negative Homans sign bilaterally. NEUROLOGICAL: Awake and alert. Cranial nerves II through XII intact. Motor and sensory grossly within normal limits. Five out of 5 muscle strength in all muscle groups. Normal speech. A/P Assessment and Plan Persistent atrial fibrillation with RVR Hypokalemia C. difficile diarrhea H/o HLD EKG shows A. fib at 137 on arrival. Cardiac monitoring initially showed A. fib with RVR but has spontaneously converted to sinus rhythm in the 80s while in the ED He received a liter normal saline IV bolus. Continue maintenance IVF NS Continue potassium supplement as patient with severe hypokalemia. Starte 1/2 NS with 20 MEq KCL. Continue mag supplement Check mag and replace mag and K as indicated. Monitor on telemetry HR noted in 50s, decreased metoprolol to 12.5 mg po daily, hold if SBP< 100 and HR< 65. Continue Eliquis 5 mg p.o. twice daily. DC ASA. 2D ECHO with normal ejection fraction 55% Consult his cardiology Dr Bland, appreciate recs Resume home meds as appropriate Also continue statin. C diff diarrhea persistent and with persistent hypokalemia: Might be secretory component of diarrhea. Add lactinex. Repeat C diff here is however negative. Vanco PO 500 mg 4 times daily for c diff . Monitor and replace electrolytes. Add Lactinex. Give cholestyramine. Monitor for improvement. Consult GI as patient is not improving. Check stool studies. DVT ppx scd/teds/apixaban Discussed Condition With The patient, nurse, family. DC plan: DC when improved, electrolytes resolved and no more n/v/d. Patient is not improving. Consult GI C. difficile is negative will check stool studies. Lucia Morris MD Feb 09, 2018 11:00
--- NOTE | 2018-02-09 16:23 | PD.CONS ---
HPI History of Present Illness This is a 77 year old M with PMH significant for a-fib and hyperlipidemia who has been seen in the ER three times since the end of December. Pt initially seen on January 20 and diagnosed with C Diff and discharged home with ten days of oral Vancomycin, pt came back to the ER on 01/22 with complaints of continued diarrhea and he was discharged with dehydration and found to be hypokalemic. Pt was discharged home with potassium pills. Pt presented to the ER again five days ago with complaints of chest pain and palpitations, he was found to have a-fib with RVR and was admitted for further management. Our pt has been consulted to further manage pts diarrhea, his C. Diff was retested and came back negative. Pt reports some improvement in diarrhea today, but stools remains soft. He denies any fecal urgency and incontinence. Did notice some small bright red specks in his stool approximately a week ago but denies any recent blood in his stool. Denies abdominal pain. Last colonoscopy was approximately ten years ago and believes exam to be normal. (Pat Willard) PFSH Past Medical History HLD Atrial fibrillation Past Surgical History Tonsillectomy Colonoscopy (Pat Willard) Coded Allergies: No Known Allergies (Unverified Allergy, Unknown, 02/04/18) Social History Alcohol Use: No Tobacco Use: No Substance Use: No (Pat Willard) Review of Systems Gastrointestinal: COMPLAINS OF: Diarrhea, DENIES: Abdominal pain, Black stools , Bloody stools, Constipation, Nausea, Vomiting, Difficulty Swallowing, Odynophagia, Swelling of Abdomen, Heartburn, Hematemesis (Pat Willard) GI Exam Vitals I&O Vital Signs Date Time Temp Pulse Resp B/P (MAP) Pulse Ox O2 Delivery O2 Flow Rate FiO2 02/09/18 12:25 97.4 55 18 100/59 (73) 97 02/09/18 08:30 98.3 56 18 102/57 (72) 98 02/09/18 08:00 53 02/09/18 08:00 Room Air 21 02/09/18 04:00 47 02/09/18 04:00 98.3 66 17 106/80 (89) 98 02/09/18 00:00 97.9 59 17 108/69 (82) 99 02/09/18 00:00 55 02/08/18 20:00 Room Air 02/08/18 20:00 53 02/08/18 20:00 97.7 55 19 107/58 (74) 98 02/08/18 17:15 97.8 65 20 112/60 (77) 98 I/O 02/08/18 02/08/18 02/08/18 02/09/18 02/09/18 02/09/18 07:00 15:00 23:00 07:00 15:00 23:00 Intake Total 600 ml 200 ml 720 ml 820 ml Output Total 650 ml 600 ml Balance -50 ml 200 ml 120 ml 820 ml Intake Oral 600 ml 720 ml 820 ml IV Total 200 ml Output Urine Total 650 ml 600 ml # Voids 7 # Bowel Movements 0 1 9 Imaging Last Impressions Chest X-Ray 02/04/18 0698 Signed Impressions: CONCLUSION: No acute cardiopulmonary disease. Laboratory Test 02/09/18 08:27 Blood Urea Nitrogen 7 MG/DL Creatinine 0.67 MG/DL Random Glucose 81 MG/DL Calcium Level 9.2 MG/DL Magnesium Level 2.6 MG/DL Sodium Level 138 MEQ/L Potassium Level 3.7 MEQ/L Chloride Level 102 MEQ/L Carbon Dioxide Level 28.6 MEQ/L Anion Gap 7 MEQ/L Estimat Glomerular Filtration Rate 114 ML/MIN Thyroid Stimulating Hormone 3rd Gen 1.300 uIU/ML Physical Examination HEENT: Normocephalic; atraumatic CHEST: Even/unlabored CARDIAC: RRR ABDOMEN: Soft, nondistended, nontender; bowel sounds active EXTREMITIES: No clubbing, cyanosis, or edema. SKIN: Normal; no rash; no jaundice. POMOLOGY TEACHER: Alert and oriented times three. (Pat Willard) Assessment and Plan Plan Assessment: - Diarrhea- initially seen in ER on 01/20, diagnosed with C Diff and discharged home with 10 days prescription of oral Vanco. Returned to ER on 01/22 with complaints of continued diarrhea and dehydration, sent home with prescription for potassium pills. Returned to ER five days ago with chest pain and palpitations, found to have A fib RVR, continued diarrhea. C. Diff testing now negative. Pt reports some improvement in diarrhea, currently on Vanco and Cholestyramine. Denies fecal urgency, incontinence, abdominal pain. States some bright red specks in his stool a week ago, none recently. Last colonoscopy approximately 10 years ago and states normal exam Plan: Colonoscopy Wednesday Obtain consent Clear liquids tomorrow Mag Citrate prep NPO after MN Stool samples Hold Eliquis Further recommendations based on findings of above Pt has been seen and examined by myself and Dr. Burris and this note is written on her behalf (Pat Willard) Physician Comments seen, examined agree with above (Suzy Burris MD) Pat Willard Feb 09, 2018 16:23 Suzy Burris MD Feb 09, 2018 16:37
[2018-02-09] MEDS ORDERED: MAGNESIUM CITRATE SOLN 300 ML BTL PO ONE (18:00)
[2018-02-09] MEDS: PRAVASTATIN SOD 80 MG TAB PO SCH (21:24)
[2018-02-10] VITALS (13 sets, daily range): BP systolic 95–126; BP diastolic 51–68; PULSE 53–79; RESP 16–20; TEMP 97.8–98.5; O2SAT 97–100
[2018-02-10] MEDS: LACTOBACILLUS ACIDOPHILUS TAB PO SCH ×3 (08:40→17:17)
[2018-02-10] MEDS: NYSTATIN SUSP 500,000 U/5 ML CUP SWISH-SWAL SCH ×4 (08:40→22:37)
[2018-02-10] MEDS: VANCOMYCIN 500 MG VIAL (FOR ORAL USE ONLY) PO SCH ×4 (08:40→22:39)
[2018-02-10] MEDS: METOPROLOL TARTRATE 25 MG TAB PO SCH (08:40)
[2018-02-10] MEDS: CHOLESTYRAMINE 4 GM PACKET PO SCH (08:41)
[2018-02-10] MEDS: SODIUM CHLORIDE 0.9% FLUSH 10 ML FLUSH IV FLUSH SCH ×2 (08:41→22:37)
[2018-02-10 08:43] LABS: AUTOMATED NEUTROPHIL # 7.4 TH/MM3 (1.8-7.7); BASOPHIL # 0.1 TH/MM3 (0-0.2); BASOPHIL % 0.9 % (0.0-2.0); EOSINOPHIL # 0.1 TH/MM3 (0-0.4); EOSINOPHIL % 1.1 % (0.0-4.0); HEMOGLOBIN 14.2 GM/DL (13.0-17.0); LYMPH % 21.5 % (9.0-44.0); LYMPHOCYTE # 2.2 TH/MM3 (1.0-4.8); MEAN CELL VOLUME 92.4 FL (80.0-100.0); MEAN CORPUSCULAR HEMOGLOBIN 31.2 PG (27.0-34.0); MEAN CORPUSCULAR HGB CONC 33.7 % (32.0-36.0); MEAN PLATELET VOLUME 9.2 FL (7.0-11.0); MONO % 3.1 % (0.0-8.0); MONOCYTE # 0.3 TH/MM3 (0-0.9); NEUT % 73.4 % (16.0-70.0); PLATELET COUNT 318 TH/MM3 (150-450); RED BLOOD COUNT 4.55 MIL/MM3 (4.50-5.90); RED CELL DISTRIBUTION WIDTH 14.6 % (11.6-17.2); WHITE BLOOD COUNT 10.1 TH/MM3 (4.0-11.0)
[2018-02-10 09:15] LABS: BICARBONATE 28.4 MEQ/L (21.0-32.0); CALCIUM 8.9 MG/DL (8.5-10.1); CREATININE 0.62 MG/DL (0.60-1.30)
--- NOTE | 2018-02-10 13:55 | HHI.GIFU ---
Subjective Remarks Pt resting in bed Reports continued loose stool, but improving some Denies nausea, vomiting, abdominal pain (Pat Willard) Objective Vitals I&O Vital Signs Date Time Temp Pulse Resp B/P (MAP) Pulse Ox O2 Delivery O2 Flow Rate FiO2 02/10/18 10:53 105/68 (80) 02/10/18 10:45 98 21 02/10/18 08:00 98.2 61 20 02/10/18 07:29 Room Air 02/10/18 04:40 97.8 79 16 100/53 (69) 98 02/10/18 03:45 78 02/09/18 23:55 97.6 60 16 107/59 (75) 98 02/09/18 23:44 53 02/09/18 21:36 97 02/09/18 21:02 97.8 57 16 91/54 (66) 96 02/09/18 20:00 Room Air 02/09/18 19:47 54 02/09/18 16:24 98.5 60 20 92/51 (65) 97 02/09/18 16:00 57 I/O 02/09/18 02/09/18 02/09/18 02/10/18 02/10/18 02/10/18 07:00 15:00 23:00 07:00 15:00 23:00 Intake Total 820 ml 840 ml 840 ml Output Total 500 ml 550 ml Balance 820 ml 340 ml 290 ml Intake Oral 820 ml 840 ml 840 ml Output Urine Total 500 ml 550 ml # Voids 7 2 # Bowel Movements 9 2 0 Laboratory Laboratory Tests Test 02/10/18 07:48 White Blood Count 10.1 Red Blood Count 4.55 Hemoglobin 14.2 Hematocrit 42.0 Mean Corpuscular Volume 92.4 Mean Corpuscular Hemoglobin 31.2 Mean Corpuscular Hemoglobin Concent 33.7 Red Cell Distribution Width 14.6 Platelet Count 318 Mean Platelet Volume 9.2 Neutrophils (%) (Auto) 73.4 Lymphocytes (%) (Auto) 21.5 Monocytes (%) (Auto) 3.1 Eosinophils (%) (Auto) 1.1 Basophils (%) (Auto) 0.9 Neutrophils # (Auto) 7.4 Lymphocytes # (Auto) 2.2 Monocytes # (Auto) 0.3 Eosinophils # (Auto) 0.1 Basophils # (Auto) 0.1 CBC Comment DIFF FINAL Differential Comment Blood Urea Nitrogen 9 Creatinine 0.62 Random Glucose 83 Calcium Level 8.9 Sodium Level 138 Potassium Level 3.9 Chloride Level 102 Carbon Dioxide Level 28.4 Anion Gap 8 Estimat Glomerular Filtration Rate 125 Date/Time Source Procedure Growth Status 02/09/18 18:31 Stool Stool Cryptosporidium Exam - Final NEGATIVE - NO CRYPTOSPORIDIUM ANTIGEN... Complete 02/09/18 18:31 Stool Stool Stool Pus (WILLIE) - Final RARE WBC Complete 02/09/18 18:31 Stool Stool Giardia Antigen (WILLIE) - Final NEGATIVE - NO GIARDIA ANTIGEN DETECTE... Complete Imaging Last Impressions Chest X-Ray 02/04/18 0619 Signed Impressions: CONCLUSION: No acute cardiopulmonary disease. Physical Exam HEENT: Normocephalic; atraumatic CHEST: Even/unlabored CARDIAC: RRR ABDOMEN: Soft, nondistended, nontender; bowel sounds active EXTREMITIES: No clubbing, cyanosis, or edema. SKIN: Normal; no rash; no jaundice. CONSTRUCTION EQUIPMENT OPERATOR: Alert and oriented times three. (Pat Willard) Assessment and Plan Plan Assessment: - Diarrhea- initially seen in ER on 01/20, diagnosed with C Diff and discharged home with 10 days prescription of oral Vanco. Returned to ER on 01/22 with complaints of continued diarrhea and dehydration, sent home with prescription for potassium pills. Returned to ER five days ago with chest pain and palpitations, found to have A fib RVR, continued diarrhea. C. Diff testing now negative. Pt reports some improvement in diarrhea, currently on Vanco and Cholestyramine. Denies fecal urgency, incontinence, abdominal pain. States some bright red specks in his stool a week ago, none recently. Last colonoscopy approximately 10 years ago and states normal exam (02/10) Continued loose stools, denies abdominal pain. Aware of plan for colonoscopy tomorrow. Will start prep at 4 today. Stool studies negative. Plan: Colonoscopy tomorrow Obtain consent Clear liquids tomorrow Mag Citrate prep NPO after MN Hold Eliquis Further recommendations based on findings of above Pt has been seen and examined by myself and Dr. Burris and this note is written on her behalf (Pat Willard) Physician Comments agree with above (Suzy Burris MD) Pat Willard Feb 10, 2018 13:55 Suzy Burris MD Feb 10, 2018 17:33
--- NOTE | 2018-02-10 14:48 | HHI.PR ---
Subjective Remarks Still with profuse diarrhea 8 times since the morning. Eating fairly well no nausea or vomiting. GI is following. Plan for EGD tomorrow. Eliquis on hold for the procedure he has no fever or chills. No abdominal pain. [place] lightheaded in the morning. Blood pressure is into the lower side. Will start IV fluids as patient with profuse diarrhea Objective Vitals Vital Signs Date Time Temp Pulse Resp B/P (MAP) Pulse Ox O2 Delivery O2 Flow Rate FiO2 02/10/18 10:53 105/68 (80) 02/10/18 10:45 98 21 02/10/18 08:00 98.2 61 20 02/10/18 07:29 Room Air 02/10/18 04:40 97.8 79 16 100/53 (69) 98 02/10/18 03:45 78 02/09/18 23:55 97.6 60 16 107/59 (75) 98 02/09/18 23:44 53 02/09/18 21:36 97 02/09/18 21:02 97.8 57 16 91/54 (66) 96 02/09/18 20:00 Room Air 02/09/18 19:47 54 02/09/18 16:24 98.5 60 20 92/51 (65) 97 02/09/18 16:00 57 I/O 02/09/18 02/09/18 02/09/18 02/10/18 02/10/18 02/10/18 07:00 15:00 23:00 07:00 15:00 23:00 Intake Total 820 ml 840 ml 840 ml Output Total 500 ml 550 ml Balance 820 ml 340 ml 290 ml Intake Oral 820 ml 840 ml 840 ml Output Urine Total 500 ml 550 ml # Voids 7 2 # Bowel Movements 9 2 0 Result Diagram: 02/10/18 0748 02/10/18 0748 Imaging Last Impressions Chest X-Ray 02/04/18 0652 Signed Impressions: CONCLUSION: No acute cardiopulmonary disease. Objective Remarks GENERAL: This is a very pleasant 77-year-old male, well-nourished, well- developed patient, in no apparent distress. CARDIOVASCULAR: Regular rate and rhythm without murmurs, gallops, or rubs. RESPIRATORY: Clear to auscultation. Breath sounds equal bilaterally. No wheezes , rales, or rhonchi. GASTROINTESTINAL: Abdomen soft, non-tender, nondistended. No hepato-splenomegaly , or palpable masses. No guarding. MUSCULOSKELETAL: Extremities without clubbing, cyanosis, or edema. No joint tenderness, effusion, or edema noted. No calf tenderness. Negative Homans sign bilaterally. NEUROLOGICAL: Awake and alert. Cranial nerves II through XII intact. Motor and sensory grossly within normal limits. Five out of 5 muscle strength in all muscle groups. Normal speech. A/P Assessment and Plan Persistent atrial fibrillation with RVR Hypokalemia C. difficile diarrhea per history , however repeat C diff here is negative. H/o HLD EKG shows A. fib at 137 on arrival. Cardiac monitoring initially showed A. fib with RVR but has spontaneously converted to sinus rhythm in the 80s while in the ED He received a liter normal saline IV bolus. Continue maintenance IVF NS Continue potassium supplement as patient with severe hypokalemia. Received 1/2 NS with 20 MEq KCL. K back to normal and tolerates food. DCd IVF, however pt with BP into a lower side and lightheaded, patient with profuse diarrhea, will start IVF. Will give PO if needs supplement. Continue mag supplement Check mag and replace mag and K as indicated. Monitor on telemetry HR noted in 50s, decreased metoprolol to 12.5 mg po daily, hold if SBP< 100 and HR< 65. Continue Eliquis 5 mg p.o. twice daily after procedure. DC ASA. 2D ECHO with normal ejection fraction 55% Consult his cardiology Dr Bland, appreciate recs Resume home meds as appropriate Also continue statin. C diff diarrhea persistent and with persistent hypokalemia: Might be secretory component of diarrhea. Add lactinex. Repeat C diff here is however negative. Vanco PO 500 mg 4 times daily for C. diff . Monitor and replace electrolytes. Add Lactinex. Give cholestyramine. Monitor for improvement. Consult GI as patient is not improving. Consult GI , plan for EGD 02/11/18. Check stool studies. DVT ppx scd/teds/apixaban Discussed Condition With The patient, nurse, gi DC plan: DC when improved, electrolytes resolved and no more n/v/d. Patient is not improving. Consult GI C. difficile is negative will check stool studies. Plan for EGD 02/11/18. Eliquis on hold resume after procedure if no bleeding Lucia Morris MD Feb 10, 2018 14:48
[2018-02-10] MEDS ORDERED: MAGNESIUM CITRATE SOLN 300 ML BTL PO ONE (16:00)
[2018-02-10] MEDS: PRAVASTATIN SOD 80 MG TAB PO SCH (22:37)
[2018-02-11] VITALS (10 sets, daily range): BP systolic 94–114; BP diastolic 54–68; PULSE 57–83; RESP 16–20; TEMP 97.4–97.9; O2SAT 95–100
[2018-02-11] MEDS ORDERED: LACTATED RINGER'S 1000 ML IV PRN (08:00)
[2018-02-11] MEDS ORDERED: METOPROLOL TARTRATE 25 MG TAB PO PRN (08:00)
[2018-02-11] MEDS ORDERED: CHLORHEXIDINE GLUCONATE 2 % 1 PACK (2 CLOTHS) TOPICAL PRN (08:00)
[2018-02-11] MEDS ORDERED: POVIDONE IODINE 5% (ANTISEPSIS KIT) 4 APPLICATIONS EACH NARE PRN (08:00)
[2018-02-11] MEDS ORDERED: SODIUM CHLORID 0.9% 500 ML IV PRN (08:00)
[2018-02-11] MEDS: VANCOMYCIN 500 MG VIAL (FOR ORAL USE ONLY) PO SCH ×4 (09:00→21:11)
[2018-02-11] MEDS: LACTOBACILLUS ACIDOPHILUS TAB PO SCH ×3 (09:00→17:07)
[2018-02-11] MEDS: NYSTATIN SUSP 500,000 U/5 ML CUP SWISH-SWAL SCH ×4 (09:00→21:11)
[2018-02-11] MEDS: SODIUM CHLORIDE 0.9% FLUSH 10 ML FLUSH IV FLUSH SCH ×2 (09:00→21:10)
--- NOTE | 2018-02-11 09:21 | HHI.PR ---
Subjective Remarks Patient in nad. Says he feels hungry, went for egd. No abd pain Still with diarrhea. No fever or chills No pain at this time. Objective Vitals Vital Signs Date Time Temp Pulse Resp B/P (MAP) Pulse Ox O2 Delivery O2 Flow Rate FiO2 02/11/18 08:27 73 02/11/18 08:00 97.9 83 20 107/68 (81) 100 02/11/18 04:25 97.8 76 16 96/60 (72) 97 02/11/18 04:21 62 02/10/18 23:49 97.8 53 16 95/51 (66) 99 02/10/18 23:43 62 02/10/18 20:41 97.9 55 16 101/59 (73) 97 02/10/18 20:04 21 02/10/18 20:00 Room Air 02/10/18 19:44 56 02/10/18 18:44 126/60 (82) 02/10/18 16:00 98.3 65 20 112/52 (72) 98 02/10/18 14:51 105/58 (74) 02/10/18 12:00 98.5 61 20 105/53 (70) 100 02/10/18 10:53 105/68 (80) 02/10/18 10:45 98 21 I/O 02/10/18 02/10/18 02/10/18 02/11/18 02/11/18 02/11/18 06:59 14:59 22:59 06:59 14:59 22:59 Intake Total 840 ml 960 ml 240 ml Output Total 550 ml Balance 290 ml 960 ml 240 ml Intake Oral 840 ml 960 ml 240 ml IV Total 0 ml Output Urine Total 550 ml # Voids 2 5 8 # Bowel Movements 0 0 0 Result Diagram: 02/10/18 0748 02/10/18 0748 Imaging Last Impressions Chest X-Ray 02/04/18 0652 Signed Impressions: CONCLUSION: No acute cardiopulmonary disease. Objective Remarks GENERAL: This is a very pleasant 77-year-old male, well-nourished, well- developed patient, in no apparent distress. CARDIOVASCULAR: Regular rate and rhythm without murmurs, gallops, or rubs. RESPIRATORY: Clear to auscultation. Breath sounds equal bilaterally. No wheezes , rales, or rhonchi. GASTROINTESTINAL: Abdomen soft, non-tender, nondistended. No hepato-splenomegaly , or palpable masses. No guarding. MUSCULOSKELETAL: Extremities without clubbing, cyanosis, or edema. No joint tenderness, effusion, or edema noted. No calf tenderness. Negative Homans sign bilaterally. NEUROLOGICAL: Awake and alert. Cranial nerves II through XII intact. Motor and sensory grossly within normal limits. Five out of 5 muscle strength in all muscle groups. Normal speech. A/P Assessment and Plan Persistent atrial fibrillation with RVR Hypokalemia C. difficile diarrhea per history, however repeat C diff here is negative. H/o HLD EKG shows A. fib at 137 on arrival. Cardiac monitoring initially showed A. fib with RVR but has spontaneously converted to sinus rhythm in the 80s while in the ED He received a liter normal saline IV bolus. Continue maintenance IVF NS Continue potassium supplement as patient with severe hypokalemia. Received 1/2 NS with 20 MEq KCL. K back to normal and tolerates food. DCd IVF, however pt with BP into a lower side and lightheaded, patient with profuse diarrhea, will start IVF. Will give PO if needs supplement. Continue mag supplement Check mag and replace mag and K as indicated. Monitor on telemetry HR noted in 50s, decreased metoprolol to 12.5 mg po daily, hold if SBP< 100 and HR< 65. Continue Eliquis 5 mg p.o. twice daily after procedure. DC ASA. 2D ECHO with normal ejection fraction 55% Consult his cardiology Dr Bland, appreciate recs Resume home meds as appropriate Also continue statin. S/P EGD: gastritis r/o celiac disease Hiatal hernia. Continue PPIs EGD in 1 year C diff diarrhea persistent and with persistent hypokalemia: Might be secretory component of diarrhea. Add lactinex. Repeat C diff here is however negative. Vanco PO 500 mg 4 times daily for C. diff . Monitor and replace electrolytes. Add Lactinex. Give cholestyramine. Monitor for improvement. Consult GI as patient is not improving. Consult GI , plan for EGD 02/11/18. Check stool studies. DVT ppx scd/teds/apixaban Discussed Condition With The patient, nurse, gi DC plan: DC when improved, electrolytes resolved and no more n/v/d. Patient is not improving. Consult GI C. difficile is negative will check stool studies. Plan for EGD 02/11/18. Eliquis on hold resume after procedure if no bleeding Lucia Morris MD Feb 11, 2018 09:21
--- NOTE | 2018-02-11 10:38 | GIPROC ---
[facility] [address] [facility]. [facility], [address] EGD PROCEDURE REPORT EXAM DATE: 02/11/2018 PATIENT NAME: Inder Kaplan MR #: [id number] BIRTHDATE: 1940 ATTENDING: Suzy Burris MD ORDER #: [id number] DEVELOPER: Beronica Méndez and Altagracia Campa STATUS: inpatient INDICATIONS: The patient is a 77 yr old male here for an EGD due to diarrhea PROCEDURE PERFORMED: EGD w/ biopsy MEDICATIONS: None and Per Anesthesia. TOPICAL ANESTHETIC: CONSENT: The patient understands the risks and benefits of the procedure and understands that these risks include, but are not limited to: sedation, allergic reaction, infection, perforation and/or bleeding. Alternative means of evaluation and treatment include, among others: physical exam, x-rays, and/or surgical intervention. The patient elects to proceed with this endoscopic procedure. medical equipment was checked for proper function. Hand hygiene and appropriate measures for infection prevention was taken. After the risks, benefits and alternatives of the procedure were thoroughly explained, Informed consent was verified, confirmed and timeout was successfully executed by the treatment team. The patient was anesthetized with topical anesthesia and the Pentax [id number] endoscope was introduced through the mouth and advanced to the second portion of the duodenum. Retroflexed views revealed a hiatal hernia The gastroscope was then slowly withdrawn and removed. Gastritis antrum-biopsy duodenum normal-biopsy to r/o celiac disease esophagitis distal esophagus -biopsy. ADVERSE EVENTS: There were no complications. IMPRESSIONS: 1. Gastritis antrum-biopsy duodenum normal-biopsy to r/o celiac disease esophagitis distal esophagus -biopsy 2. Retroflexed views revealed a hiatal hernia RECOMMENDATIONS: 1. Await biopsy results. Biopsy results will not be ready for 7-10 days. If you don't hear from us in two weeks, call our office for biopsy results. 2. Anti-reflux regimen 3. Continue PPI PATIENT CONDITION: stable DISPOSITION: Inpatient REPEAT EXAM: Return 1 year EGD Suzy Burris MD eSigned: Suzy Burris MD 02/11/2018 10:37 AM cc:
--- NOTE | 2018-02-11 10:43 | GIPROC ---
[facility] [address] [facility]. [facility], [address] COLONOSCOPY PROCEDURE REPORT EXAM DATE: 02/11/2018 PATIENT NAME: Inder Kaplan MR #: [id number] BIRTHDATE: 1940 ENDOSCOPIST: Suzy Burris MD ORDER #: [id number] [employer] PLANT SUPERVISOR: Altagracia Campa and Beronica Méndez STATUS: inpatient INDICATIONS: The patient is a 77 yr old male here for a colonoscopy due to chronic diarrhea PROCEDURE PERFORMED: Colonoscopy with biopsy MEDICATIONS: None and Per Anesthesia. PREP QUALITY: good PREP TYPE:GoLytely ESTIMATED BLOOD LOSS: None CONSENT: The patient understands the risks and benefits of the procedure and understands that these risks include, but are not limited to: sedation, allergic reaction, infection, perforation and/or bleeding. Alternative means of evaluation and treatment include, among others: physical exam, x-rays, and/or surgical intervention. The patient elects to proceed with this endoscopic procedure. medical equipment was checked for proper function. Hand hygiene and appropriate measures for infection prevention was taken. After the risks, benefits and alternatives of the procedure were thoroughly explained, Informed consent was verified, confirmed and timeout was successfully executed by the treatment team. A digital exam revealed external hemorrhoids The Pentax [id number] endoscope was introduced through the anus and advanced to the cecum, which was identified by both the appendix and ileocecal valve. The instrument was then slowly withdrawn as the colon was fully examined. COLON FINDINGS: Diverticulosis sigmoid,descending random biopsy from ascending,descending colitis sigmoid-biopsy nodular mucosa rectum-biopsy internal/external hemorrhoids. Retroflexed views revealed internal hemorrhoids and Retroflexed views revealed medium internal hemorrhoids The scope was then completely withdrawn from the patient and the procedure terminated. PROCEDURE WITHDRAWAL TIME:8minutes ADVERSE EVENTS: There were no complications. IMPRESSIONS: 1. Diverticulosis sigmoid,descending random biopsy from ascending,descending colitis sigmoid-biopsy nodular mucosa rectum-biopsy internal/external hemorrhoids 2. Retroflexed views revealed internal hemorrhoids 3. Retroflexed views revealed medium internal hemorrhoids 4. Revealed external hemorrhoids RECOMMENDATIONS: 1. Await biopsy results. Biopsy results will not be ready for 7-10 days. If you don't hear from us in two weeks, call our office for results. 2. Benefiber 2 tsp daily 3. High fiber diet 4. Probiotics from any [facility] or health food store 5. Yearly rectal exams 6. Canasa supp pr daily RECALL: Return 1 year Colonoscopy flexisigmoidoscopy in 6 weeks ok to restart anticoagulation from gi point if no improvement ct abdom,en/pelvis if dc fu office 4 weeks Suzy Burris MD eSigned: Suzy Burris MD 02/11/2018 10:43 AM cc: PATIENT NAME: Inder Kaplan MR#: [id number]
[2018-02-11] MEDS ORDERED: ePHEDrine/NS 25 MG/5 ML SYRINGE IV ONE (12:00)
[2018-02-11] MEDS ORDERED: PROPOFOL 200 MG/20 ML AMP IV ONE (12:00)
[2018-02-11] MEDS ORDERED: DIATRIZOATE MEGLUM/DIATRIZOATE SOD 9 ML CUP PO ONE (12:15)
[2018-02-11] MEDS: CHOLESTYRAMINE 4 GM PACKET PO SCH (12:58)
[2018-02-11] MEDS: METOPROLOL TARTRATE 25 MG TAB PO SCH (13:14)
[2018-02-11] MEDS ORDERED: CANA10002 RECTAL (14:13)
[2018-02-11] MEDS ORDERED: CHOL4POW4 PO (14:13)
[2018-02-11] MEDS ORDERED: IOHEXOL 350 MG/ML 10 ML VIAL (for RAD DIAG) IVCONTRAST ONE (17:43)
--- NOTE | 2018-02-11 18:07 | RADRPT ---
EXAM DATE: 02/11/2018 5:37 PM EDT AGE/SEX: 77 years / Male INDICATIONS: Abdomen pain. CLINICAL DATA: This is the patient's initial encounter. Patient reports that signs and symptoms have been present for 2 days and indicates a pain score of 5/10. MEDICAL/SURGICAL HISTORY: Cardiovascular disease. C-diff None. ORAL CONTRAST: Prescribed oral contrast ingested. RADIATION DOSE: 6.64 CTDI (mGy) COMPARISON: No prior exams available for comparison. TECHNIQUE: Multiple contiguous axial images were obtained through the abdomen and pelvis following b olus infusion of 100 ml Omnipaque 350 (iohexol) nonionic water-soluble contrast as a single exam do se. Prescribed oral contrast ingested. Using automated exposure control and adjustment of the mA and /or kV according to patient size, radiation dose was kept as low as reasonably achievable to obtain o ptimal diagnostic quality images. DICOM format image data is available electronically for review and comparison. FINDINGS: Lower Lungs: The visualized lower lungs are clear. Liver: The liver has a homogeneous density without space-occupying lesion. There is no dilation of th e biliary tree. No calcified gallstones. Spleen: Homogeneous density without enlargement. Scattered punctate calcifications. Pancreas: Unremarkable without mass or calcification. Kidneys: Focal cortical thinning posterior cortex with associated calcification suggests chronic kennedy lonephritis. There is moderate dilation of the collecting system, extrarenal pelvis on the left side. No calcified stones. Adrenal Glands: The right adrenal gland has a normal appearance. The left adrenal is mildly enlarge d without focal mass.. Aorta: The aorta and proximal iliac vessels are grossly unremarkable without aneurysmal dilation. Bowel/Mesentery: No dilated loops of small or large bowel. Oral contrast passes through to the left colon. There are multiple diverticula in the sigmoid colon and suggestion of diffuse wall thickening the sigmoid. There is some minimal induration of the fat about the sigmoid as well. Minimal amount of free fluid in the left pelvis. Abdominal Wall: Intact. Retroperitoneum: No evidence of adenopathy in the retrocrural, para-aortic, or deep pelvic regions. Bladder: Contours are smooth. Reproductive Organs: No abnormal masses or calcifications seen. Inguinal: The inguinal region is unremarkable without evidence of adenopathy. Bony Structures: Unremarkable. CONCLUSION: 1. Equivocal findings suggesting possible diverticulitis with wall thickening of the sigmoid, minima l induration of the perisigmoid fat, and a minimal amount of free fluid in the dependent pelvis. 2. Evidence of chronic pyelonephritis right kidney. 3. Dilation of the collecting system and extrarenal pelvis of the left kidney; possible hydronephros is. No cause for obstruction is identified. Electronically signed by: Fabrice Matthew MD 02/11/2018 6:06 PM EDT
[2018-02-11] MEDS ORDERED: PANT20TA2 PO (19:54)
[2018-02-11] MEDS: APIXABAN 5 MG TABLET PO SCH (21:10)
[2018-02-11] MEDS: PRAVASTATIN SOD 80 MG TAB PO SCH (21:10)
[2018-02-12] VITALS (10 sets, daily range): BP systolic 93–106; BP diastolic 47–55; PULSE 54–119; RESP 16–20; TEMP 97.6–98.4; O2SAT 95–97
[2018-02-12] MEDS: MESALAMINE 1000 MG SUPP RECTAL SCH ×2 (02:07→21:02)
[2018-02-12] MEDS: NYSTATIN SUSP 500,000 U/5 ML CUP SWISH-SWAL SCH ×4 (08:37→20:55)
[2018-02-12] MEDS: VANCOMYCIN 500 MG VIAL (FOR ORAL USE ONLY) PO SCH ×4 (08:37→20:57)
[2018-02-12] MEDS: LACTOBACILLUS ACIDOPHILUS TAB PO SCH ×3 (08:37→17:16)
[2018-02-12] MEDS: CHOLESTYRAMINE 4 GM PACKET PO SCH (08:37)
[2018-02-12] MEDS: METOPROLOL TARTRATE 25 MG TAB PO SCH ×2 (08:38→08:42)
[2018-02-12] MEDS: APIXABAN 5 MG TABLET PO SCH ×2 (08:38→20:55)
[2018-02-12] MEDS: SODIUM CHLORIDE 0.9% FLUSH 10 ML FLUSH IV FLUSH SCH ×2 (08:38→20:52)
[2018-02-12] MEDS: MESALAMINE HD 800 MG DELAYED RELEASE TAB PO SCH ×2 (13:31→20:56)
--- NOTE | 2018-02-12 18:06 | HHI.PR ---
Subjective Remarks still having diarrhea Denies fevers or chills. Objective Vitals Vital Signs Date Time Temp Pulse Resp B/P (MAP) Pulse Ox O2 Delivery O2 Flow Rate FiO2 02/12/18 15:27 21 02/12/18 15:15 62 02/12/18 12:00 97.6 67 18 106/55 (72) 97 02/12/18 11:54 60 02/12/18 08:00 Room Air 02/12/18 08:00 98.2 60 18 105/51 (69) 97 02/12/18 07:51 57 02/12/18 04:14 97.9 59 16 95/54 (68) 97 02/12/18 04:00 119 02/12/18 00:00 54 02/11/18 23:51 Room Air 02/11/18 23:51 97.8 57 16 98/54 (69) 98 02/11/18 20:45 97.8 62 18 94/55 (68) 95 02/11/18 20:45 Room Air 02/11/18 20:45 97.8 62 18 94/55 (68) 95 02/11/18 20:00 58 I/O 02/11/18 02/11/18 02/11/18 02/12/18 02/12/18 02/12/18 07:00 15:00 23:00 07:00 15:00 23:00 Intake Total 240 ml 900 ml Balance 240 ml 900 ml Intake Oral 240 ml IV Total 450 ml Other 450 ml # Voids 8 # Bowel Movements 0 Result Diagram: 02/10/1848 02/10/18 0748 Objective Remarks GENERAL: This is a very pleasant 77-year-old male, well-nourished, well- developed patient, in no apparent distress. CARDIOVASCULAR: Regular rate and rhythm without murmurs, gallops, or rubs. RESPIRATORY: Clear to auscultation. Breath sounds equal bilaterally. No wheezes , rales, or rhonchi. GASTROINTESTINAL: Abdomen soft, non-tender, nondistended. No hepato-splenomegaly , or palpable masses. No guarding. MUSCULOSKELETAL: Extremities without clubbing, cyanosis, or edema. No joint tenderness, effusion, or edema noted. No calf tenderness. Negative Homans sign bilaterally. NEUROLOGICAL: Awake and alert. Cranial nerves II through XII intact. Motor and sensory grossly within normal limits. Five out of 5 muscle strength in all muscle groups. Normal speech. Procedures none A/P Problem List: (1) Gastritis ICD Code: K29.70 - Gastritis, unspecified, without bleeding (2) Atrial fibrillation with RVR ICD Code: I48.91 - Unspecified atrial fibrillation Status: Acute (3) New onset a-fib ICD Code: I48.91 - Unspecified atrial fibrillation Status: Acute (4) C. difficile diarrhea ICD Code: A04.72 - Enterocolitis due to Clostridium difficile, not specified as recurrent Status: Acute (5) Hypokalemia, gastrointestinal losses ICD Code: E87.6 - Hypokalemia Status: Acute (6) Hyperlipidemia ICD Code: E78.5 - Hyperlipidemia, unspecified Status: Acute Assessment and Plan Assessment and Plan Persistent atrial fibrillation with RVR Hypokalemia C. difficile diarrhea per history, however repeat C diff here is negative. H/o HLD EKG shows A. fib at 137 on arrival. Cardiac monitoring initially showed A. fib with RVR but has spontaneously converted to sinus rhythm in the 80s while in the ED He received a liter normal saline IV bolus. Continue maintenance IVF NS Continue potassium supplement as patient with severe hypokalemia. Received 1/2 NS with 20 MEq KCL. K back to normal and tolerates food. DCd IVF, however pt with BP into a lower side and lightheaded, patient with profuse diarrhea, will start IVF. Will give PO if needs supplement. Continue mag supplement Check mag and replace mag and K as indicated. Monitor on telemetry HR noted in 50s, decreased metoprolol to 12.5 mg po daily, hold if SBP< 100 and HR< 65. Continue Eliquis 5 mg p.o. twice daily after procedure. DC ASA. 2D ECHO with normal ejection fraction 55% Consult his cardiology Dr Bland, appreciate recs Resume home meds as appropriate Also continue statin. S/P EGD: gastritis r/o celiac disease Hiatal hernia. Continue PPIs EGD in 1 year 02/12 PAtient still with diarrhea. Management as per GI. Restart anticoagulation when cleared by GI. C diff diarrhea persistent and with persistent hypokalemia: Might be secretory component of diarrhea. Add lactinex. Repeat C diff here is however negative. Vanco PO 500 mg 4 times daily for C. diff . Monitor and replace electrolytes. Add Lactinex. Give cholestyramine. Monitor for improvement. Consult GI as patient is not improving. Consult GI , plan for EGD 02/11/18. Check stool studies. DVT ppx scd/teds/apixaban Discussed Condition With Siva Lange MD Feb 12, 2018 18:06
[2018-02-12] MEDS: PRAVASTATIN SOD 80 MG TAB PO SCH (20:55)
[2018-02-13] VITALS: BP 99/52; PULSE 57; PULSE 58; RESP 18; TEMP 98.2; O2SAT 97
[2018-02-13 04:00] VITALS: BP 94/58; PULSE 62; PULSE 76; RESP 18; TEMP 98; O2SAT 94
[2018-02-13] MEDS: MESALAMINE HD 800 MG DELAYED RELEASE TAB PO SCH ×2 (05:03→13:10)
[2018-02-13 07:42] VITALS: PULSE 95
[2018-02-13 08:25] VITALS: BP 106/58; PULSE 54; RESP 20; TEMP 98.1; O2SAT 100
[2018-02-13] MEDS ORDERED: META48.53 PO (08:45)
--- NOTE | 2018-02-13 08:45 | HHI.PR ---
Subjective Remarks Stools are forming. No n/v/d/c. No palpitations/ Denies chest pain or sob. Discussed with GI Dr Burris cleared patient for DC to follow up as OP Objective Vitals Vital Signs Date Time Temp Pulse Resp B/P (MAP) Pulse Ox O2 Delivery O2 Flow Rate FiO2 02/13/18 04:00 76 02/13/18 04:00 98.0 62 18 94/58 (70) 94 02/13/18 04:00 Room Air 02/13/18 00:00 58 02/13/18 00:00 Room Air 02/13/18 00:00 98.2 57 18 99/52 (68) 97 02/12/18 22:08 21 02/12/18 20:00 Room Air 02/12/18 20:00 59 02/12/18 20:00 98.4 59 20 93/47 (62) 95 02/12/18 16:00 Room Air 02/12/18 16:00 98.3 61 18 94/50 (65) 97 02/12/18 15:27 21 02/12/18 15:15 62 02/12/18 12:00 Room Air 02/12/18 12:00 97.6 67 18 106/55 (72) 97 02/12/18 11:54 60 I/O 02/12/18 02/12/18 02/12/18 02/13/18 02/13/18 02/13/18 07:00 15:00 23:00 07:00 15:00 23:00 Intake Total 720 ml 680 ml Output Total 300 ml 900 ml Balance 420 ml -220 ml Intake Oral 720 ml 680 ml Output Urine Total 300 ml 900 ml # Bowel Movements 2 1 Result Diagram: 02/10/18 0748 02/10/18 0748 Imaging Last Impressions Abdomen/Pelvis CT 02/11/18 0000 Signed Impressions: CONCLUSION: 1. Equivocal findings suggesting possible diverticulitis with wall thickening of the sigmoid, minimal induration of the perisigmoid fat, and a minimal amount of free fluid in the dependent pelvis. 2. Evidence of chronic pyelonephritis right kidney. 3. Dilation of the collecting system and extrarenal pelvis of the left kidney; possible hydronephrosis. No cause for obstruction is identified. Chest X-Ray 02/04/18 0652 Signed Impressions: CONCLUSION: No acute cardiopulmonary disease. Objective Remarks GENERAL: This is a very pleasant 77-year-old male, well-nourished, well- developed patient, in no apparent distress. CARDIOVASCULAR: Regular rate and rhythm without murmurs, gallops, or rubs. RESPIRATORY: Clear to auscultation. Breath sounds equal bilaterally. No wheezes , rales, or rhonchi. GASTROINTESTINAL: Abdomen soft, non-tender, nondistended. No hepato-splenomegaly , or palpable masses. No guarding. MUSCULOSKELETAL: Extremities without clubbing, cyanosis, or edema. No joint tenderness, effusion, or edema noted. No calf tenderness. Negative Homans sign bilaterally. NEUROLOGICAL: Awake and alert. Cranial nerves II through XII intact. Motor and sensory grossly within normal limits. Five out of 5 muscle strength in all muscle groups. Normal speech. Procedures EGD/ colonoscopy by Dr Fatuma OSORIO A/P Problem List: (1) Gastritis ICD Code: K29.70 - Gastritis, unspecified, without bleeding (2) Atrial fibrillation with RVR ICD Code: I48.91 - Unspecified atrial fibrillation Status: Acute (3) New onset a-fib ICD Code: I48.91 - Unspecified atrial fibrillation Status: Acute (4) C. difficile diarrhea ICD Code: A04.72 - Enterocolitis due to Clostridium difficile, not specified as recurrent Status: Acute (5) Hypokalemia, gastrointestinal losses ICD Code: E87.6 - Hypokalemia Status: Acute (6) Hyperlipidemia ICD Code: E78.5 - Hyperlipidemia, unspecified Status: Acute Assessment and Plan Persistent atrial fibrillation with RVR Hypokalemia C. difficile diarrhea per history, however repeat C diff here is negative. H/o HLD Gastritis Diverticulosis sigmoid,descending random biopsy from ascending,descending colitis sigmoid-biopsy nodular mucosa rectum-biopsy Internal/external hemorrhoids EKG shows A. fib at 137 on arrival. Cardiac monitoring initially showed A. fib with RVR but has spontaneously converted to sinus rhythm in the 80s while in the ED He received a liter normal saline IV bolus. Continue maintenance IVF NS Continue potassium supplement as patient with severe hypokalemia. Received 1/2 NS with 20 MEq KCL. K back to normal and tolerates food. DCd IVF, however pt with BP into a lower side and lightheaded, patient with profuse diarrhea, will start IVF. Will give PO if needs supplement. Continue mag supplement Check mag and replace mag and K as indicated. Monitor on telemetry HR noted in 50s, decreased metoprolol to 12.5 mg po daily, hold if SBP< 100 and HR< 65. Continue Eliquis 5 mg p.o. twice daily after procedure. DC ASA. 2D ECHO with normal ejection fraction 55% Consult his cardiology Dr Bland, appreciate recs Resume home meds as appropriate Also continue statin. S/P EGD: gastritis r/o celiac disease Hiatal hernia. Continue PPIs EGD in 1 year S/p Colonoscopy with Diverticulosis sigmoid,descending random biopsy from ascending,descending colitis sigmoid-biopsy nodular mucosa rectum-biopsy Internal/external hemorrhoids Benefiber Probiotics from any [facility] or [employer] store Yearly rectal exams Canasa supp pr daily Return 1 year Colonoscopy flexisigmoidoscopy in 6 weeks C diff diarrhea persistent and with persistent hypokalemia: Might be secretory component of diarrhea. Add lactinex. Repeat C diff here is however negative. Vanco PO 500 mg 4 times daily for C. diff . Monitor and replace electrolytes. Add Lactinex. Give cholestyramine. Monitor for improvement. Consult GI as patient is not improving. Consult GI , s/p colonoscopy and EGD . Check stool studies. DVT ppx scd/teds/apixaban Discussed Condition With The patient, nurse, gi DC plan: DC when improved, electrolytes resolved and no more n/v/d. Patient is not improving. Consult GI C. difficile is negative will check stool studies. S/P EGD/ colonoscopy 02/11/18. Eliquis resumed after procedure. Has forming stools. Improved. Discussed with Dr Burris GI cleared patient for DC to follow up as OP Lucia Morris MD Feb 13, 2018 08:45
[2018-02-13] MEDS: METOPROLOL TARTRATE 25 MG TAB PO SCH (09:00)
[2018-02-13] MEDS: NYSTATIN SUSP 500,000 U/5 ML CUP SWISH-SWAL SCH ×2 (10:06→13:10)
[2018-02-13] MEDS: CHOLESTYRAMINE 4 GM PACKET PO SCH (10:06)
[2018-02-13] MEDS: VANCOMYCIN 500 MG VIAL (FOR ORAL USE ONLY) PO SCH ×2 (10:06→13:10)
[2018-02-13] MEDS: APIXABAN 5 MG TABLET PO SCH (10:06)
[2018-02-13] MEDS: LACTOBACILLUS ACIDOPHILUS TAB PO SCH ×2 (10:06→13:10)
[2018-02-13] MEDS: SODIUM CHLORIDE 0.9% FLUSH 10 ML FLUSH IV FLUSH SCH (10:07)
[2018-02-13 11:43] VITALS: PULSE 63
[2018-02-13 12:20] VITALS: BP 94/56; PULSE 82; RESP 20; TEMP 98.6; O2SAT 99
--- NOTE | 2018-02-13 13:20 | HHI.GIFU ---
Subjective Remarks Sitting up in a chair Eating heart healthy diet Does note some loose stools with small amount of blood at the end of defecation Stable hemoglobin 14.2 (Becca Armendariz) Objective Vitals I&O Vital Signs Date Time Temp Pulse Resp B/P (MAP) Pulse Ox O2 Delivery O2 Flow Rate FiO2 02/13/18 12:20 98.6 82 20 94/56 (69) 99 02/13/18 12:00 Room Air 02/13/18 08:25 98.1 54 20 106/58 (74) 100 02/13/18 08:00 Room Air 02/13/18 07:42 95 02/13/18 04:00 76 02/13/18 04:00 98.0 62 18 94/58 (70) 94 02/13/18 04:00 Room Air 02/13/18 00:00 58 02/13/18 00:00 Room Air 02/13/18 00:00 98.2 57 18 99/52 (68) 97 02/12/18 22:08 21 02/12/18 20:00 Room Air 02/12/18 20:00 59 02/12/18 20:00 98.4 59 20 93/47 (62) 95 02/12/18 16:00 Room Air 02/12/18 16:00 98.3 61 18 94/50 (65) 97 02/12/18 15:27 21 02/12/18 15:15 62 I/O 02/12/18 02/12/18 02/12/18 02/13/18 02/13/18 02/13/18 07:00 15:00 23:00 07:00 15:00 23:00 Intake Total 720 ml 680 ml Output Total 300 ml 900 ml Balance 420 ml -220 ml Intake Oral 720 ml 680 ml Output Urine Total 300 ml 900 ml # Bowel Movements 2 1 Laboratory Date/Time Source Procedure Growth Status 02/09/18 18:31 Stool Stool Cryptosporidium Exam - Final NEGATIVE - NO CRYPTOSPORIDIUM ANTIGEN... Complete 02/09/18 18:31 Stool Stool Stool Pus ([facility]) - Final RARE WBC Complete 02/09/18 18:31 Stool Stool Giardia Antigen ([facility]) - Final NEGATIVE - NO GIARDIA ANTIGEN DETECTE... Complete Imaging Last Impressions Abdomen/Pelvis CT 02/11/18 0000 Signed Impressions: CONCLUSION: 1. Equivocal findings suggesting possible diverticulitis with wall thickening of the sigmoid, minimal induration of the perisigmoid fat, and a minimal amount of free fluid in the dependent pelvis. 2. Evidence of chronic pyelonephritis right kidney. 3. Dilation of the collecting system and extrarenal pelvis of the left kidney; possible hydronephrosis. No cause for obstruction is identified. Chest X-Ray 02/04/18 0652 Signed Impressions: CONCLUSION: No acute cardiopulmonary disease. Physical Exam HEENT: Normocephalic; atraumatic CHEST: Even/unlabored CARDIAC: RRR ABDOMEN: Soft, nondistended, nontender; bowel sounds active EXTREMITIES: No lower extremity edema. SKIN: Pale no obvious rash. [employer]: Answering simple questions (Becca Armendariz) Assessment and Plan Plan Assessment: - Diarrhea- initially seen in ER on 01/20, diagnosed with C Diff and discharged home with 10 days prescription of oral Vanco. Returned to ER on 01/22 with complaints of continued diarrhea and dehydration, sent home with prescription for potassium pills. Returned to ER five days ago with chest pain and palpitations, found to have A fib RVR, continued diarrhea. C. Diff testing now negative. Pt reports some improvement in diarrhea, currently on Vanco and Cholestyramine. Denies fecal urgency, incontinence, abdominal pain. States some bright red specks in his stool a week ago, none recently. Last colonoscopy approximately 10 years ago and states normal exam (02/10) Continued loose stools, denies abdominal pain. Aware of plan for colonoscopy tomorrow. Will start prep at 4 today. Stool studies negative. 02/13/2018, patient is resting in the bed states still having some loose BMs but formed. Eating heart healthy diet and sitting up in chair. Patient is status post EGD 02/11/2018, showing gastritis, duodenum normal, distal esophagitis and hiatal hernia. Biopsies performed to rule out celiac disease Colonoscopy 02/11/2018 shows sigmoid descending diverticulosis, colitis sigmoid colon, nodular mucosal in the rectum with internal and external hemorrhoids. Biopsies were performed Patient tolerated procedures without any difficulty. Plan Diet as tolerated, high-fiber Include Benefiber 2 teaspoons daily supplement Probiotics Yearly rectal exams Canasa suppositories daily Return in 1 year for colonoscopy and planned flex sigmoidoscopy in 6 weeks Repeat EGD in 1 year Continue PPI Okay to restart anticoagulation If patient continues with symptoms without improvement consider CT scan of the abdomen and pelvis Can follow-up with GI in 4 weeks after discharge Monitor lab Supportive care Patient was seen per myself and Dr. Burris, this note written on her behalf (Becca Armendariz) Becca Armendariz Feb 13, 2018 13:20 Suzy Burris MD Feb 14, 2018 21:18
[2018-02-16 03:52] LABS: ENDOMYSIAL AB SCREEN ND (NEGATIVE); ENDOMYSIAL AB TITER ND (<1:5)
== END 2018-02-13 14:10 | disposition home or self-care (01) | DRG 309 ==
LOC: NEPE 06:32 → NEDA 11:25 → N04A 12:52 → OBSVTOIN 02-05 09:13
PROVIDERS: ADMIT Hospitalist; ATTEND Hospitalist
PROC: 0DB38ZX Excision of Lower Esophagus, Via Natural or Artificial Opening Endoscopic, Diagnostic (ICD-10-PCS; 2018-02-11)
PROC: 0DBK8ZX Excision of Ascending Colon, Via Natural or Artificial Opening Endoscopic, Diagnostic (ICD-10-PCS; 2018-02-11)
PROC: 0DBN8ZX Excision of Sigmoid Colon, Via Natural or Artificial Opening Endoscopic, Diagnostic (ICD-10-PCS; 2018-02-11)
PROC: 0DBP8ZX Excision of Rectum, Via Natural or Artificial Opening Endoscopic, Diagnostic (ICD-10-PCS; 2018-02-11)
PROC: 0DBM8ZX Excision of Descending Colon, Via Natural or Artificial Opening Endoscopic, Diagnostic (ICD-10-PCS; 2018-02-11)
PROC: 0DB98ZX Excision of Duodenum, Via Natural or Artificial Opening Endoscopic, Diagnostic (ICD-10-PCS; principal; 2018-02-11 09:47)
PROC: 0DB78ZX Excision of Stomach, Pylorus, Via Natural or Artificial Opening Endoscopic, Diagnostic (ICD-10-PCS; 2018-02-11 09:47)
DX: I48.1 Persistent atrial fibrillation (principal); A04.72 Enterocolitis due to Clostridium difficile, not specified as recurrent; E78.5 Hyperlipidemia, unspecified; E87.6 Hypokalemia; K29.50 Unspecified chronic gastritis without bleeding; K44.9 Diaphragmatic hernia without obstruction or gangrene; K20.9 Esophagitis, unspecified; K64.8 Other hemorrhoids; K64.4 Residual hemorrhoidal skin tags; K57.30 Diverticulosis of large intestine without perforation or abscess without bleeding
CPT/HCPCS: 71045; 74177; 80048; 80053; 81001; 82550; 82552; 82784; 83516; 83690; 83735; 84100; 84132; 84443; 84484; 85025; 87205; 87328; 87329; 87425; 87493; 87506; 88305; 88312; 93005; 93306; 94150; 96361; 96365; 96366; G0378; G8987-GP; G8988-GP; J1650; J3480; J7030; J7040; J7120; Q9963; Q9967